=== PATIENT | female | born 1980 | race Two or more races ===

== ENCOUNTER 2016-11-10 11:33 | Inpatient (IN) | payer MEDICAID, OTHER ==
[~2016-11-10] VITALS: Ht 152.4 cm; Wt 59.4 kg
[~2016-11-10 11:33] MED LIST: BACTDSB PO; HYDR-309 PO
[2016-11-10 12:39] VITALS: BP 135/101
[2016-11-10] MEDS ORDERED: INFLUENZA VIRUS VACCINE QVS 2016-17 (3YR+)/PF 60 MCG/0.5 ML SYRINGE IM ONE ×2 (14:00→19:45)
[2016-11-10 15:17] LABS: GLUCOSE,POINT OF CARE 90 MG/DL (70-110)
[2016-11-10 15:33] LABS: BASOPHILS % (AUTO) 0.3 % (0.0-2.0); EOSINOPHILS % (AUTO) 0.8 % (1.0-6.0); HEMATOCRIT 32.8 % (36-46); HEMOGLOBIN 10.5 g/dL (12.0-16.0); LYMPHOCYTES # (AUTO) 1.3 K/uL (1.0-4.8); LYMPHOCYTES % (AUTO) 16.7 % (22.0-44.0); MEAN CORPUSCULAR HEMOGLOBIN 24.2 pg (26.0-34.0); MEAN CORPUSCULAR HGB CONC 32.1 G/dL (31.0-37.0); MEAN CORPUSCULAR VOLUME 75 fL (80-100); MONOCYTES # (AUTO) 0.3 K/uL (0.1-1.0); MONOCYTES % (AUTO) 3.8 % (2.0-9.0); NEUTROPHILS # (AUTO) 6.2 K/uL (1.8-7.7); NEUTROPHILS % (AUTO) 78.4 % (40.0-70.0); PLATELET COUNT (AUTO) 417 K/uL (150-450); RED BLOOD CELL COUNT(AUTO) 4.36 MIL/uL (4.00-5.20); RED CELL DISTRIBUTION WIDTH 18.4 % (11.5-14.5); WHITE BLOOD COUNT (AUTO) 7.9 K/uL (4.5-11.0)
[2016-11-10 15:57] LABS: ANION GAP 8 mmol/L (8-16); CALCIUM, TOTAL 7.7 mg/dL (8.8-10.5); CARBON DIOXIDE 25 mmol/L (22-29); CHLORIDE 106 mmol/L (98-107); CREATININE 0.55 mg/dL (0.60-1.30); GLOMERULAR FILTR. RATE CALC > 60 mL/min (>60); POTASSIUM 3.7 mmol/L (3.5-5.1); SODIUM SERUM 139 mmol/L (136-145); UREA NITROGEN, BLOOD 9 mg/dL (7-18)
[2016-11-10 16:07] LABS: ALANINE AMINOTRANSFERASE 14 U/L (12-78); ALBUMIN 2.8 g/dL (3.4-5.0); ASPARTATE AMINOTRANSFERASE 11 U/L (15-37); BILIRUBIN,TOTAL 0.1 mg/dL (0.1-1.0); TOTAL PROTEIN, SERUM 6.9 g/dL (6.4-8.2)
[2016-11-10] MEDS ORDERED: CEFTAROLINE 600 MG/D5W 250 ML IV ONE (16:30)
[2016-11-10 19:27] VITALS: BP 139/82
[2016-11-10] MEDS: LORazepam 2 MG TABLET PO PRN (22:34)
[2016-11-11] VITALS (12 sets, daily range): BP systolic 128–145; BP diastolic 79–101
[2016-11-11] MEDS ORDERED: IBUPROFEN 600 MG TABLET PO PRN (08:00)
[2016-11-11] MEDS ORDERED: LOPERAMIDE HCL 2 MG CAPSULE PO PRN (08:00)
[2016-11-11] MEDS ORDERED: CloNIDine HCL 0.1 MG TABLET PO PRN ×2 (08:00→12:45)
[2016-11-11] MEDS ORDERED: ONDANSETRON HCL 4 MG TABLET PO PRN (08:00)
[2016-11-11] MEDS ORDERED: MAGNESIUM HYDROXIDE SUSPENSION 30 ML UDCUP PO PRN (08:00)
[2016-11-11] MEDS ORDERED: BACITRACIN 28.4 GM OINTMENT TP PRN (08:00)
[2016-11-11] MEDS ORDERED: MAG HYDROX/AL HYDROX/SIMETH ES 30 ML SUSPENSION UDCUP PO PRN ×2 (08:00→12:45)
[2016-11-11] MEDS ORDERED: ACETAMINOPHEN 325 MG TABLET PO PRN (08:00)
[2016-11-11] MEDS ORDERED: PETROLATUM,WHITE 71 GM JELLY TP PRN (08:00)
[2016-11-11] MEDS ORDERED: BENZOCAINE/MENTHOL LOZENGE MM PRN (08:00)
[2016-11-11] MEDS ORDERED: ALBUTEROL SULFATE HFA 90 MCG/PUFF 8 GM INHALER IH PRN (08:00)
[2016-11-11] MEDS: MULTIVITAMINS WITH MINERALS, THERAPEUTIC TABLET PO SCH (10:17)
[2016-11-11] MEDS: CEPHALEXIN MONOHYDRATE 500 MG CAPSULE PO SCH ×3 (10:17→16:44)
[2016-11-11] MEDS: SULFAMETHOX/TRIMETH DS 800-160 MG/TABLET PO SCH ×2 (10:17→16:44)
[2016-11-11] MEDS: NICOTINE 21 MG/24 HOUR PATCH TD SCH (10:19)
[2016-11-11] MEDS: LORazepam 2 MG TABLET PO PRN ×2 (11:34→17:32)
[2016-11-11] MEDS ORDERED: PROMETHAZINE HCL 25 MG/ML VIAL IM PRN (12:45)
[2016-11-11] MEDS ORDERED: HydrOXYzine PAMOATE 50 MG CAPSULE PO PRN (12:45)
[2016-11-11] MEDS: CloNIDine HCL 0.1 MG TABLET PO SCH ×2 (16:44→21:21)
[2016-11-11] MEDS: ZOLPIDEM TARTRATE 10 MG TABLET PO PRN (22:22)
[2016-11-12 00:05] VITALS: BP 126/92
[2016-11-12] MEDS: LORazepam 2 MG TABLET PO PRN ×4 (00:08→21:08)
[2016-11-12 04:00] VITALS: BP 129/91
[2016-11-12 05:45] VITALS: BP 125/94
[2016-11-12] MEDS: CloNIDine HCL 0.1 MG TABLET PO SCH ×4 (05:47→21:08)
[2016-11-12] MEDS: SULFAMETHOX/TRIMETH DS 800-160 MG/TABLET PO SCH ×2 (09:28→16:22)
[2016-11-12] MEDS: MULTIVITAMINS WITH MINERALS, THERAPEUTIC TABLET PO SCH (09:28)
[2016-11-12] MEDS: NICOTINE 21 MG/24 HOUR PATCH TD SCH (09:29)
[2016-11-12] MEDS: CEPHALEXIN MONOHYDRATE 500 MG CAPSULE PO SCH ×3 (09:29→16:22)
[2016-11-12] MEDS: TraZODone HCL 100 MG TABLET PO SCH ×2 (12:54→16:22)
[2016-11-13 06:02] VITALS: BP 123/63
[2016-11-13 06:03] VITALS: BP 123/63
[2016-11-13] MEDS: CloNIDine HCL 0.1 MG TABLET PO SCH ×4 (06:07→20:04)
[2016-11-13] MEDS: NICOTINE 21 MG/24 HOUR PATCH TD SCH (08:18)
[2016-11-13] MEDS: MULTIVITAMINS WITH MINERALS, THERAPEUTIC TABLET PO SCH (08:18)
[2016-11-13] MEDS: CEPHALEXIN MONOHYDRATE 500 MG CAPSULE PO SCH ×3 (08:18→16:19)
[2016-11-13] MEDS: SULFAMETHOX/TRIMETH DS 800-160 MG/TABLET PO SCH ×2 (08:18→16:19)
[2016-11-13] MEDS: TraZODone HCL 100 MG TABLET PO SCH ×3 (08:18→16:19)
[2016-11-13] MEDS: LORazepam 2 MG TABLET PO PRN ×2 (15:06→20:54)
[2016-11-13 16:28] VITALS: BP 110/71
[2016-11-13 16:30] VITALS: BP 110/71
[2016-11-13] MEDS: HALOPERIDOL 5 MG TABLET PO PRN (16:44)
[2016-11-13 20:00] VITALS: BP 110/73
[2016-11-13 21:06] VITALS: BP 106/69
[2016-11-13] MEDS: IBUPROFEN 600 MG TABLET PO PRN (21:06)
[2016-11-14 06:08] VITALS: BP 114/61
[2016-11-14] MEDS: CloNIDine HCL 0.1 MG TABLET PO SCH ×4 (06:11→21:24)
[2016-11-14 08:30] VITALS: BP 101/61
[2016-11-14] MEDS: CEPHALEXIN MONOHYDRATE 500 MG CAPSULE PO SCH ×3 (08:49→17:35)
[2016-11-14] MEDS: TraZODone HCL 100 MG TABLET PO SCH ×3 (08:49→17:35)
[2016-11-14] MEDS: SULFAMETHOX/TRIMETH DS 800-160 MG/TABLET PO SCH ×2 (08:49→17:35)
[2016-11-14] MEDS: MULTIVITAMINS WITH MINERALS, THERAPEUTIC TABLET PO SCH (08:49)
[2016-11-14] MEDS: NICOTINE 21 MG/24 HOUR PATCH TD SCH (08:50)
[2016-11-14 09:51] VITALS: BP 101/61
[2016-11-14] MEDS: LORazepam 2 MG TABLET PO PRN ×3 (10:42→21:28)
[2016-11-14] MEDS: HALOPERIDOL 5 MG TABLET PO PRN ×2 (10:56→16:24)
[2016-11-14 12:22] VITALS: BP 115/79
[2016-11-14 16:00] VITALS: BP 105/65
[2016-11-14] MEDS: IBUPROFEN 600 MG TABLET PO PRN (16:25)
[2016-11-14 16:33] VITALS: BP 105/65
[2016-11-14] MEDS: ZOLPIDEM TARTRATE 10 MG TABLET PO PRN (23:00)
[2016-11-15] VITALS (7 sets, daily range): BP systolic 103–119; BP diastolic 66–73
[2016-11-15] MEDS: CloNIDine HCL 0.1 MG TABLET PO SCH ×4 (06:14→21:09)
[2016-11-15 08:24] LABS: BASOPHILS # (AUTO) 0.05 K/uL (0.00-0.20); BASOPHILS % (AUTO) 0.9 % (0.0-2.0); EOSINOPHILS # (AUTO) 0.17 K/uL (0.00-0.70); EOSINOPHILS % (AUTO) 2.83 % (1.0-6.0); HEMATOCRIT 30.6 % (36-46); HEMOGLOBIN 9.9 g/dL (12.0-16.0); LYMPHOCYTES # (AUTO) 2.7 K/uL (1.0-4.8); LYMPHOCYTES % (AUTO) 44.9 % (22.0-44.0); MEAN CORPUSCULAR HEMOGLOBIN 24.1 pg (26.0-34.0); MEAN CORPUSCULAR HGB CONC 32.3 G/dL (31.0-37.0); MEAN CORPUSCULAR VOLUME 75 fL (80-100); MONOCYTES # (AUTO) 0.4 K/uL (0.1-1.0); MONOCYTES % (AUTO) 6.6 % (2.0-9.0); NEUTROPHILS # (AUTO) 2.7 K/uL (1.8-7.7); NEUTROPHILS % (AUTO) 44.8 % (40.0-70.0); PLATELET COUNT (AUTO) 335 K/uL (150-450); RED CELL DISTRIBUTION WIDTH 18.4 % (11.5-14.5)
[2016-11-15] MEDS: SULFAMETHOX/TRIMETH DS 800-160 MG/TABLET PO SCH ×2 (08:52→16:37)
[2016-11-15] MEDS: NICOTINE 21 MG/24 HOUR PATCH TD SCH (08:52)
[2016-11-15] MEDS: CEPHALEXIN MONOHYDRATE 500 MG CAPSULE PO SCH ×3 (08:52→16:37)
[2016-11-15] MEDS: TraZODone HCL 100 MG TABLET PO SCH ×3 (08:52→16:37)
[2016-11-15] MEDS: MULTIVITAMINS WITH MINERALS, THERAPEUTIC TABLET PO SCH (08:52)
[2016-11-15 08:53] LABS: ALANINE AMINOTRANSFERASE 14 U/L (12-78); ALBUMIN 3.1 g/dL (3.4-5.0); ANION GAP 10 mmol/L (8-16); ASPARTATE AMINOTRANSFERASE 10 U/L (15-37); BILIRUBIN,TOTAL 0.2 mg/dL (0.1-1.0); CALCIUM, TOTAL 8.3 mg/dL (8.8-10.5); CARBON DIOXIDE 23 mmol/L (22-29); CHLORIDE 105 mmol/L (98-107); CHOL/HDL RATIO 2.9 (3.9-5.7); CREATININE 0.68 mg/dL (0.60-1.30); GLOMERULAR FILTR. RATE CALC > 60 mL/min (>60); POTASSIUM 4.5 mmol/L (3.5-5.1); SODIUM SERUM 138 mmol/L (136-145); THYROID STIMULATING HORMONE 1.61 uIU/mL (0.36-3.74); TOTAL PROTEIN, SERUM 7.1 g/dL (6.4-8.2); UREA NITROGEN, BLOOD 16 mg/dL (7-18)
[2016-11-15 10:59] LABS: RBC MORPHOLOGY COMMENT ABNORMAL RBC MORPH
[2016-11-15] MEDS: LORazepam 2 MG TABLET PO PRN ×3 (11:36→21:53)
[2016-11-15] MEDS: HALOPERIDOL 5 MG TABLET PO PRN (12:32)
[2016-11-15] MEDS: ZOLPIDEM TARTRATE 10 MG TABLET PO PRN (21:09)
[2016-11-16] MEDS: CloNIDine HCL 0.1 MG TABLET PO SCH ×4 (06:00→22:01)
[2016-11-16 06:24] VITALS: BP 103/58
[2016-11-16] MEDS: MULTIVITAMINS WITH MINERALS, THERAPEUTIC TABLET PO SCH (09:16)
[2016-11-16] MEDS: CEPHALEXIN MONOHYDRATE 500 MG CAPSULE PO SCH ×3 (09:16→16:21)
[2016-11-16] MEDS: TraZODone HCL 100 MG TABLET PO SCH ×3 (09:16→16:21)
[2016-11-16] MEDS: NICOTINE 21 MG/24 HOUR PATCH TD SCH (09:16)
[2016-11-16] MEDS: LORazepam 2 MG TABLET PO PRN ×2 (10:05→15:56)
[2016-11-16 10:08] VITALS: BP 130/75
[2016-11-16] MEDS: HALOPERIDOL 5 MG TABLET PO PRN (13:03)
[2016-11-16 16:36] VITALS: BP 130/78
[2016-11-16] MEDS: ZOLPIDEM TARTRATE 10 MG TABLET PO PRN (20:05)
[2016-11-16] MEDS ORDERED: CHLO100T24 PO (21:01)
[2016-11-16 22:00] VITALS: BP 126/63
[2016-11-16] MEDS ORDERED: TRAZ-147 PO (22:01)
[2016-11-16] MEDS ORDERED: CEPH500 PO (22:04)
[2016-11-17 05:51] VITALS: BP 98/66
[2016-11-17 05:52] VITALS: BP_SYST 99; BP_DIAS 59; BP_DIAS 69
[2016-11-17] MEDS: CloNIDine HCL 0.1 MG TABLET PO SCH (05:54)
== END 2016-11-17 07:15 | disposition home or self-care (01) | DRG 750 ==
LOC: BV PSY EVL 13:38 → B2S 17:44 → B3A 19:09 → B2S 19:26 → B3A 11-11 21:35
PROVIDERS: ADMIT Psychiatry & Neurology Psychiatry; ATTEND Psychiatry & Neurology Psychiatry
PROC: 3E0234Z Introduction of Serum, Toxoid and Vaccine into Muscle, Percutaneous Approach (ICD-10-PCS; principal; 2016-11-10)
DX: F25.9 Schizoaffective disorder, unspecified (principal); R45.851 Suicidal ideations; E83.51 Hypocalcemia; F11.10 Opioid abuse, uncomplicated; I10 Essential (primary) hypertension; B99.8 Other infectious disease; L03.114 Cellulitis of left upper limb; D50.9 Iron deficiency anemia, unspecified; Z90.49 Acquired absence of other specified parts of digestive tract; F17.200 Nicotine dependence, unspecified, uncomplicated; B18.2 Chronic viral hepatitis C; F12.90 Cannabis use, unspecified, uncomplicated; G47.00 Insomnia, unspecified; E11.9 Type 2 diabetes mellitus without complications; F19.10 Other psychoactive substance abuse, uncomplicated; F22 Delusional disorders; G43.909 Migraine, unspecified, not intractable, without status migrainosus; F32.9 Major depressive disorder, single episode, unspecified; F41.9 Anxiety disorder, unspecified; Z23 Encounter for immunization
CPT/HCPCS: 82306; 82962; 84443; 93971; 96365; 99285; 99406; G0480; J0712; Q0162

== ENCOUNTER 2016-11-19 16:07 | Inpatient (IN) | payer MEDICAID, OTHER ==
[~2016-11-19] VITALS: Ht 152.4 cm; Wt 59.4 kg
[~2016-11-19 16:07] MED LIST changes: -BACTDSB PO; +CEPH500 PO; -HYDR-309 PO; +TRAZ-147 PO
[2016-11-19 16:17] LABS: GLUCOSE,POINT OF CARE 89 MG/DL (70-110)
[2016-11-19] MEDS ORDERED: ZOLPIDEM TARTRATE 10 MG TABLET PO PRN (16:45)
[2016-11-19 16:57] LABS: BASOPHILS % (AUTO) 1.2 % (0.0-2.0); EOSINOPHILS % (AUTO) 1.3 % (1.0-6.0); HEMOGLOBIN 10.9 g/dL (12.0-16.0); LYMPHOCYTES # (AUTO) 2.3 K/uL (1.0-4.8); LYMPHOCYTES % (AUTO) 36.3 % (22.0-44.0); MEAN CORPUSCULAR HEMOGLOBIN 24.1 pg (26.0-34.0); MEAN CORPUSCULAR HGB CONC 31.9 G/dL (31.0-37.0); MEAN CORPUSCULAR VOLUME 75 fL (80-100); MONOCYTES # (AUTO) 0.3 K/uL (0.1-1.0); MONOCYTES % (AUTO) 4.7 % (2.0-9.0); NEUTROPHILS # (AUTO) 3.5 K/uL (1.8-7.7); NEUTROPHILS % (AUTO) 56.5 % (40.0-70.0); PLATELET COUNT (AUTO) 404 K/uL (150-450); RED BLOOD CELL COUNT(AUTO) 4.51 MIL/uL (4.00-5.20); RED CELL DISTRIBUTION WIDTH 18.3 % (11.5-14.5); WHITE BLOOD COUNT (AUTO) 6.3 K/uL (4.5-11.0)
[2016-11-19 17:07] LABS: ANION GAP 12 mmol/L (8-16); CALCIUM, TOTAL 8.6 mg/dL (8.8-10.5); CARBON DIOXIDE 23 mmol/L (22-29); CHLORIDE 106 mmol/L (98-107); CREATININE 0.57 mg/dL (0.60-1.30); GLOMERULAR FILTR. RATE CALC > 60 mL/min (>60); POTASSIUM 4.1 mmol/L (3.5-5.1); SODIUM SERUM 141 mmol/L (136-145); UREA NITROGEN, BLOOD 14 mg/dL (7-18)
[2016-11-19 17:13] LABS: ALANINE AMINOTRANSFERASE 19 U/L (12-78); ALBUMIN 3.6 g/dL (3.4-5.0); ASPARTATE AMINOTRANSFERASE 14 U/L (15-37); BILIRUBIN,TOTAL 0.1 mg/dL (0.1-1.0); TOTAL PROTEIN, SERUM 7.7 g/dL (6.4-8.2)
[2016-11-19 17:45] VITALS: BP 145/85
[2016-11-19] MEDS: LORazepam 2 MG TABLET PO PRN ×2 (18:19→22:25)
[2016-11-19] MEDS: HALOPERIDOL 5 MG TABLET PO PRN (18:19)
[2016-11-19] MEDS ORDERED: MAGNESIUM HYDROXIDE SUSPENSION 30 ML UDCUP PO PRN (19:15)
[2016-11-19] MEDS ORDERED: ACETAMINOPHEN 325 MG TABLET PO PRN (19:15)
[2016-11-19] MEDS ORDERED: BENZOCAINE/MENTHOL LOZENGES [6 LOZENGES/PACKET] PO PRN (19:15)
[2016-11-19] MEDS ORDERED: ALBUTEROL SULFATE HFA 90 MCG/PUFF 8 GM INHALER IH PRN (19:15)
[2016-11-19] MEDS ORDERED: LOPERAMIDE HCL 2 MG CAPSULE PO PRN (19:15)
[2016-11-19] MEDS ORDERED: PETROLATUM,WHITE 71 GM JELLY TP PRN (19:15)
[2016-11-19] MEDS ORDERED: MAG HYDROX/AL HYDROX/SIMETH 30 ML SUSP UDCUP PO PRN (19:15)
[2016-11-19] MEDS ORDERED: CloNIDine HCL 0.1 MG TABLET PO PRN (19:15)
[2016-11-19] MEDS ORDERED: ONDANSETRON HCL 4 MG TABLET PO PRN (19:15)
[2016-11-20] MEDS: LORazepam 2 MG TABLET PO PRN ×3 (03:50→18:20)
[2016-11-20 06:29] VITALS: BP 127/77
[2016-11-20 09:39] VITALS: BP 129/89
[2016-11-20] MEDS: HALOPERIDOL 5 MG TABLET PO PRN ×2 (10:31→16:50)
[2016-11-20] MEDS: MULTIVITAMINS WITH MINERALS, THERAPEUTIC TABLET PO SCH (10:31)
[2016-11-20] MEDS: NICOTINE 21 MG/24 HOUR PATCH TD SCH (13:14)
[2016-11-20 16:24] VITALS: BP 119/76
[2016-11-21] MEDS: LORazepam 2 MG TABLET PO PRN ×3 (01:08→20:35)
[2016-11-21 01:09] VITALS: BP 124/96
[2016-11-21 04:45] VITALS: BP 124/85
[2016-11-21] MEDS: IBUPROFEN 600 MG TABLET PO PRN ×2 (04:49→12:36)
[2016-11-21] MEDS: TraZODone HCL 100 MG TABLET PO SCH ×3 (09:08→16:28)
[2016-11-21] MEDS: MULTIVITAMINS WITH MINERALS, THERAPEUTIC TABLET PO SCH (09:08)
[2016-11-21] MEDS: NICOTINE 21 MG/24 HOUR PATCH TD SCH (09:11)
[2016-11-21 09:44] VITALS: BP 113/70
[2016-11-21] MEDS: HALOPERIDOL 5 MG TABLET PO PRN (16:29)
[2016-11-21 16:53] VITALS: BP 126/101
[2016-11-22] MEDS: LORazepam 2 MG TABLET PO PRN ×2 (07:13→13:30)
[2016-11-22 08:52] VITALS: BP 97/61
[2016-11-22] MEDS: MULTIVITAMINS WITH MINERALS, THERAPEUTIC TABLET PO SCH (09:21)
[2016-11-22] MEDS: TraZODone HCL 100 MG TABLET PO SCH ×2 (09:21→13:30)
[2016-11-22] MEDS: HALOPERIDOL 5 MG TABLET PO PRN ×2 (09:21→13:30)
[2016-11-22] MEDS: NICOTINE 21 MG/24 HOUR PATCH TD SCH (09:22)
[2016-11-22] MEDS ORDERED: MULT-1203 PO (13:41)
== END 2016-11-22 14:00 | disposition home or self-care (01) | DRG 750 ==
LOC: EMS 16:08 → 3EI 16:45
PROVIDERS: ADMIT Psychiatry & Neurology Psychiatry; ATTEND Psychiatry & Neurology Psychiatry
DX: F25.9 Schizoaffective disorder, unspecified (principal); R45.851 Suicidal ideations; E11.9 Type 2 diabetes mellitus without complications; I10 Essential (primary) hypertension; D50.9 Iron deficiency anemia, unspecified; F11.10 Opioid abuse, uncomplicated; G43.909 Migraine, unspecified, not intractable, without status migrainosus; F32.9 Major depressive disorder, single episode, unspecified; F41.9 Anxiety disorder, unspecified; B18.2 Chronic viral hepatitis C; G47.00 Insomnia, unspecified; F17.210 Nicotine dependence, cigarettes, uncomplicated; F12.90 Cannabis use, unspecified, uncomplicated; Z71.6 Tobacco abuse counseling; Z71.51 Drug abuse counseling and surveillance of drug abuser; Z79.899 Other long term (current) drug therapy; Z90.49 Acquired absence of other specified parts of digestive tract; Z98.890 Other specified postprocedural states; Z59.0 Homelessness
CPT/HCPCS: 82962; 87081; 99285; G0480

== ENCOUNTER 2018-08-08 19:39 | Emergency (ER) | payer MEDICAID ==
[~2018-08-08] VITALS: Ht 152.4 cm; Wt 102.3 kg
[~2018-08-08 19:39] MED LIST changes: -CEPH500 PO; +MULT-1203 PO; -TRAZ-147 PO; +TRAZ-220 PO
[2018-08-08 19:58] LABS: GLUCOSE,POINT OF CARE 301 MG/DL (70-110)
[2018-08-08] MEDS: KETOROLAC TROMETHAMINE 30 MG/ML VIAL IM ONE (20:20)
[2018-08-08] MEDS: HYDROCODONE/ACETAMINOPHEN 5-325 MG TABLET PO ONE (20:20)
[2018-08-08 21:21] VITALS: BP 147/93
== END 2018-08-08 22:10 | disposition home or self-care (01) ==
LOC: EMS 19:40
DX: S83.91XA Sprain of unspecified site of right knee, initial encounter (principal); S93.401A Sprain of unspecified ligament of right ankle, initial encounter; I10 Essential (primary) hypertension; E11.9 Type 2 diabetes mellitus without complications; F32.9 Major depressive disorder, single episode, unspecified; F20.9 Schizophrenia, unspecified; F41.9 Anxiety disorder, unspecified; F17.210 Nicotine dependence, cigarettes, uncomplicated; F11.90 Opioid use, unspecified, uncomplicated; X50.1XXA Overexertion from prolonged static or awkward postures, initial encounter; Y93.01 Activity, walking, marching and hiking; Y92.89 Other specified places as the place of occurrence of the external cause; Y99.8 Other external cause status
CPT/HCPCS: 29515; 73562; 73610; 82962; 96372; 99283; J1885

== ENCOUNTER 2018-11-04 08:52 | Emergency (ER) | payer MEDICAID ==
[~2018-11-04] VITALS: Ht 152.4 cm; Wt 104.5 kg
[2018-11-04 09:08] LABS: GLUCOSE,POINT OF CARE 137 MG/DL (70-110)
[2018-11-04] MEDS ORDERED: KETOROLAC TROMETHAMINE 30 MG/ML VIAL IM ONE (10:30)
[2018-11-04 12:25] VITALS: BP 141/86
== END 2018-11-04 12:46 | disposition home or self-care (01) ==
LOC: EMS 08:53
DX: S93.491A Sprain of other ligament of right ankle, initial encounter (principal); E11.9 Type 2 diabetes mellitus without complications; I10 Essential (primary) hypertension; G43.909 Migraine, unspecified, not intractable, without status migrainosus; F20.9 Schizophrenia, unspecified; F11.20 Opioid dependence, uncomplicated; F17.210 Nicotine dependence, cigarettes, uncomplicated; F19.10 Other psychoactive substance abuse, uncomplicated; F41.9 Anxiety disorder, unspecified; F32.9 Major depressive disorder, single episode, unspecified; Z90.49 Acquired absence of other specified parts of digestive tract; X50.9XXA Other and unspecified overexertion or strenuous movements or postures, initial encounter; Y93.89 Activity, other specified; Y92.89 Other specified places as the place of occurrence of the external cause; Y99.8 Other external cause status
CPT/HCPCS: 29515; 73590; 73610; 73630; 82962; 96372; 99283; 99406; J1885

== ENCOUNTER 2023-03-19 16:32 | Emergency (ER) | payer MEDICAID ==
[~2023-03-19] VITALS: Ht 149.9 cm; Wt 61.4 kg
[2023-03-19 17:02] VITALS: BP 186/105; PULSE 121; RESP 16; TEMP 98.3
[2023-03-19] MEDS ORDERED: CEPH-558 PO ×2 (17:15→17:31)
[2023-03-19] MEDS ORDERED: DOXY-354 PO ×2 (17:15→17:31)
[2023-03-19] MEDS ORDERED: BACI28.410 TP ×2 (17:15→17:31)
== END 2023-03-19 18:01 | disposition home or self-care (01) ==
LOC: EMS 16:33
DX: L73.9 Follicular disorder, unspecified (principal); F41.9 Anxiety disorder, unspecified; F32.A Depression, unspecified; E11.9 Type 2 diabetes mellitus without complications; I10 Essential (primary) hypertension; G43.909 Migraine, unspecified, not intractable, without status migrainosus; F20.9 Schizophrenia, unspecified; F17.210 Nicotine dependence, cigarettes, uncomplicated; F11.90 Opioid use, unspecified, uncomplicated; Z90.49 Acquired absence of other specified parts of digestive tract; Z98.890 Other specified postprocedural states
CPT/HCPCS: 99283; Z7502

== ENCOUNTER 2023-05-20 12:35 | Emergency (ER) | payer MEDICAID, OTHER ==
[~2023-05-20] VITALS: Ht 149.9 cm; Wt 72.7 kg
[~2023-05-20 12:35] MED LIST changes: +BACI28.410 TP; +CEPH-558 PO; +DOXY-354 PO; -MULT-1203 PO; -TRAZ-220 PO
[2023-05-20 12:54] VITALS: TEMP 98.5
[2023-05-20] MEDS ORDERED: ACETAMINOPHEN 500 MG TABLET PO ONE (14:45)
[2023-05-20] MEDS ORDERED: ONDANSETRON HCL 4 MG/2 ML VIAL IVP ONE (14:45)
[2023-05-20] MEDS ORDERED: SODIUM CHLORIDE 0.9% 1,000 ML IV ONE (14:45)
[2023-05-20] MEDS ORDERED: CloNIDine HCL 0.1 MG TABLET PO ONE (14:45)
[2023-05-20 16:01] LABS: BASOPHILS % (AUTO) 0.8 % (0.0-2.0); EOSINOPHILS % (AUTO) 0.2 % (1.0-6.0); HEMOGLOBIN 11.6 g/dL (12.0-16.0); LYMPHOCYTES # (AUTO) 1.1 K/uL (1.0-4.8); LYMPHOCYTES % (AUTO) 16.1 % (22.0-44.0); MEAN CORPUSCULAR HGB CONC 32.3 G/dL (31.0-37.0); MEAN CORPUSCULAR VOLUME 77 fL (80-100); MONOCYTES # (AUTO) 0.2 K/uL (0.1-1.0); MONOCYTES % (AUTO) 3.1 % (2.0-9.0); NEUTROPHILS # (AUTO) 5.3 K/uL (1.8-7.7); NEUTROPHILS % (AUTO) 79.8 % (40.0-70.0); PLATELET COUNT (AUTO) 272 K/uL (150-450); RED BLOOD CELL COUNT(AUTO) 4.66 MIL/uL (4.00-5.20); RED CELL DISTRIBUTION WIDTH 17.5 % (11.5-14.5); WHITE BLOOD COUNT (AUTO) 6.7 K/uL (4.5-11.0)
[2023-05-20 16:22] LABS: TROPONIN I-HIGH SENSITIVITY 7 ng/L (<51)
[2023-05-20 16:28] LABS: ALANINE AMINOTRANSFERASE 14 U/L (12-78); ALBUMIN 3.6 g/dL (3.4-5.0); ALKALINE PHOSPHATASE 84 U/L (46-116); ANION GAP 13 mmol/L (8-16); ASPARTATE AMINOTRANSFERASE 12 U/L (15-37); BILIRUBIN,TOTAL 0.3 mg/dL (0.1-1.0); CALCIUM, TOTAL 8.9 mg/dL (8.8-10.5); CARBON DIOXIDE 22 mmol/L (22-29); CHLORIDE 104 mmol/L (98-107); CREATININE 0.55 mg/dL (0.60-1.30); GLOMERULAR FILTR. RATE CALC > 60 mL/min (>60); GLUCOSE,RANDOM 132 mg/dL (70-110); SODIUM SERUM 140 mmol/L (136-145); TOTAL PROTEIN, SERUM 7.7 g/dL (6.4-8.2); UREA NITROGEN, BLOOD 9 mg/dL (7-18)
[2023-05-20 16:30] LABS: ALCOHOL, BLOOD (SERUM) < 3 mg/dL (0-10)
[2023-05-20 16:31] LABS: CREATINE KINASE, TOTAL ONLY 47 U/L (26-192)
[2023-05-20] MEDS ORDERED: POTASSIUM CHLORIDE 20 MEQ ER TABLET PO ONE (16:45)
[2023-05-20 17:44] LABS: RBC MORPHOLOGY COMMENT ABNORMAL RBC MORPH
[2023-05-20] MEDS ORDERED: LORazepam 1 MG TABLET PO ONE (19:00)
[2023-05-20 20:00] VITALS: BP 152/78; PULSE 71; RESP 16
== END 2023-05-20 20:18 | disposition home or self-care (01) ==
LOC: EMS 12:44
DX: S02.2XXA Fracture of nasal bones, initial encounter for closed fracture (principal); F11.93 Opioid use, unspecified with withdrawal; F41.9 Anxiety disorder, unspecified; F32.A Depression, unspecified; E11.9 Type 2 diabetes mellitus without complications; I10 Essential (primary) hypertension; G43.909 Migraine, unspecified, not intractable, without status migrainosus; F20.9 Schizophrenia, unspecified; F17.210 Nicotine dependence, cigarettes, uncomplicated; F12.90 Cannabis use, unspecified, uncomplicated; F15.90 Other stimulant use, unspecified, uncomplicated; Z90.49 Acquired absence of other specified parts of digestive tract; Z98.890 Other specified postprocedural states; X58.XXXA Exposure to other specified factors, initial encounter; Y93.89 Activity, other specified; Y92.89 Other specified places as the place of occurrence of the external cause; Y99.8 Other external cause status
CPT/HCPCS: 99285; 70450; 96374; 96361; 80053; 82550; 84484; 84703; 85025; 36415; 70486; 72125; 93005; G0480; J2405; J7030

== ENCOUNTER 2023-05-21 00:11 | Inpatient (IN) | payer OTHER ==
[~2023-05-21] VITALS: Ht 149.9 cm; Wt 72.7 kg
[2023-05-21 04:52] LABS: BASOPHILS % (AUTO) 0.7 % (0.0-2.0); EOSINOPHILS % (AUTO) 2.4 % (1.0-6.0); HEMOGLOBIN 11.4 g/dL (12.0-16.0); LYMPHOCYTES # (AUTO) 2.4 K/uL (1.0-4.8); LYMPHOCYTES % (AUTO) 32.6 % (22.0-44.0); MEAN CORPUSCULAR HEMOGLOBIN 25.1 pg (26.0-34.0); MEAN CORPUSCULAR HGB CONC 32.7 G/dL (31.0-37.0); MEAN CORPUSCULAR VOLUME 77 fL (80-100); MONOCYTES # (AUTO) 0.5 K/uL (0.1-1.0); MONOCYTES % (AUTO) 6.5 % (2.0-9.0); NEUTROPHILS # (AUTO) 4.3 K/uL (1.8-7.7); NEUTROPHILS % (AUTO) 57.8 % (40.0-70.0); PLATELET COUNT (AUTO) 262 K/uL (150-450); RED BLOOD CELL COUNT(AUTO) 4.56 MIL/uL (4.00-5.20); WHITE BLOOD COUNT (AUTO) 7.5 K/uL (4.5-11.0)
[2023-05-21 05:00] LABS: ANION GAP 11 mmol/L (8-16); CALCIUM, TOTAL 8.8 mg/dL (8.8-10.5); CARBON DIOXIDE 21 mmol/L (22-29); CHLORIDE 106 mmol/L (98-107); CREATININE 0.63 mg/dL (0.60-1.30); GLOMERULAR FILTR. RATE CALC > 60 mL/min (>60); GLUCOSE,RANDOM 120 mg/dL (70-110); POTASSIUM 3.3 mmol/L (3.5-5.1); SODIUM SERUM 138 mmol/L (136-145); UREA NITROGEN, BLOOD 10 mg/dL (7-18)
[2023-05-21 05:08] LABS: ALANINE AMINOTRANSFERASE 15 U/L (12-78); ALBUMIN 3.3 g/dL (3.4-5.0); ALKALINE PHOSPHATASE 74 U/L (46-116); ASPARTATE AMINOTRANSFERASE 9 U/L (15-37); BILIRUBIN,TOTAL 0.3 mg/dL (0.1-1.0); CREATINE KINASE, TOTAL ONLY 46 U/L (26-192); TOTAL PROTEIN, SERUM 7.1 g/dL (6.4-8.2)
[2023-05-21 05:10] LABS: ALCOHOL, BLOOD (SERUM) < 3 mg/dL (0-10); TROPONIN I-HIGH SENSITIVITY 10 ng/L (<51)
[2023-05-21] MEDS ORDERED: POTASSIUM CHLORIDE 10% 40 MEQ/30 ML LIQUID UDCUP PO ONE (07:00)
[2023-05-21] MEDS ORDERED: LORazepam 2 MG TABLET PO ONE ×2 (07:00→10:15)
[2023-05-21 07:16] LABS: APPEARANCE,URINE CLEAR (CLEAR); BILIRUBIN,URINE NEGATIVE (NEGATIVE); COLOR,URINE LIGHT YELLOW (YELLOW); GLUCOSE, URINE (UA) NEGATIVE (NEGATIVE); KETONES,URINE NEGATIVE (NEGATIVE); LEUKOCYTE ESTERASE ,URINE NEGATIVE (NEGATIVE); NITRATE,URINE NEGATIVE (NEGATIVE); OCCULT BLOOD,URINE NEGATIVE (NEGATIVE); PROTEIN,URINE NEGATIVE (NEGATIVE); SPECIFIC GRAVITIY, URINE 1.013 (1.003-1.030); UROBILINOGEN,URINE <=1.0 mg/dL (<=1.0)
[2023-05-21 07:27] LABS: ALCOHOL, URINE DRUG SCREEN NEGATIVE (NEGATIVE); AMPHET/METH SCREEN,URINE POSITIVE (NEGATIVE); BARBITURATE SCREEN, URINE NEGATIVE (NEGATIVE); BENZODIAZEPINES SCREEN,URINE NEGATIVE (NEGATIVE); CANNABINOID SCREEN,URINE POSITIVE (NEGATIVE); COCAINE SCREEN,URINE NEGATIVE (NEGATIVE); METHADONE SCREEN, URINE NEGATIVE (NEGATIVE); OPIATE SCREEN,URINE NEGATIVE (NEGATIVE); PHENCYCLIDINE SCREEN,URINE NEGATIVE (NEGATIVE)
[2023-05-21 09:30] VITALS: BP 140/63; PULSE 78; RESP 19; TEMP 98.4
[2023-05-21 18:22] LABS: GLUCOMETER DEV NAME(LOC) 4E.2; GLUCOSE,POINT OF CARE 127 MG/DL (70-110)
[2023-05-21 19:50] VITALS: BP 158/101; PULSE 89; RESP 20; TEMP 99.1
[2023-05-21] MEDS ORDERED: IPRATROPIUM BROMIDE 0.5 MG/2.5 ML NEB SOLUTION NEB PRN (23:15)
[2023-05-21] MEDS ORDERED: AmLODIPine BESYLATE 10 MG TABLET PO ONE (23:15)
[2023-05-21] MEDS ORDERED: HYDROCODONE/ACETAMINOPHEN 5-325 MG TABLET PO PRN (23:15)
[2023-05-21] MEDS ORDERED: MORPHINE SULFATE 2 MG/ML SYRINGE IVP PRN (23:15)
[2023-05-21] MEDS ORDERED: BISACODYL 10 MG RECTAL RECTAL SUPPOSITORY PR PRN (23:15)
[2023-05-21] MEDS ORDERED: ZOLPIDEM TARTRATE 5 MG TABLET PO PRN (23:15)
[2023-05-21] MEDS ORDERED: MAGNESIUM HYDROXIDE SUSPENSION 30 ML UDCUP PO PRN (23:15)
[2023-05-21] MEDS ORDERED: LABETALOL HCL 5 MG/ML 20 ML VIAL IVP PRN (23:15)
[2023-05-21] MEDS ORDERED: ALBUTEROL SULFATE 2.5 MG/0.5 ML NEB SOLUTION NEB PRN (23:15)
[2023-05-21] MEDS ORDERED: ACETAMINOPHEN 325 MG TABLET PO PRN (23:15)
[2023-05-21] MEDS ORDERED: ONDANSETRON HCL 4 MG/2 ML VIAL IVP PRN (23:15)
[2023-05-21] MEDS: HEPARIN SODIUM,PORCINE 5,000 UNITS/ML VIAL SQ SCH (23:46)
[2023-05-22] VITALS (8 sets, daily range): BP systolic 106–161; BP diastolic 64–96; PULSE 84–100; RESP 18–20; TEMP 97.4–99.1; O2SAT 98
[2023-05-22 00:01] LABS: GLUCOMETER DEV NAME(LOC) 4E.2; GLUCOSE,POINT OF CARE 101 MG/DL (70-110)
[2023-05-22] MEDS: AmLODIPine BESYLATE 10 MG TABLET PO SCH (08:59)
[2023-05-22] MEDS: HEPARIN SODIUM,PORCINE 5,000 UNITS/ML VIAL SQ SCH ×3 (08:59→23:35)
[2023-05-22] MEDS: PANTOPRAZOLE SODIUM 40 MG DR TABLET PO SCH (08:59)
[2023-05-22 09:14] LABS: EOSINOPHILS % (AUTO) 2.3 % (1.0-6.0); HEMOGLOBIN 12.4 g/dL (12.0-16.0); LYMPHOCYTES # (AUTO) 1.7 K/uL (1.0-4.8); LYMPHOCYTES % (AUTO) 24.7 % (22.0-44.0); MEAN CORPUSCULAR HEMOGLOBIN 25.1 pg (26.0-34.0); MEAN CORPUSCULAR HGB CONC 32.7 G/dL (31.0-37.0); MEAN CORPUSCULAR VOLUME 77 fL (80-100); MONOCYTES # (AUTO) 0.4 K/uL (0.1-1.0); MONOCYTES % (AUTO) 5.2 % (2.0-9.0); NEUTROPHILS # (AUTO) 4.7 K/uL (1.8-7.7); NEUTROPHILS % (AUTO) 66.8 % (40.0-70.0); PLATELET COUNT (AUTO) 336 K/uL (150-450); RED BLOOD CELL COUNT(AUTO) 4.95 MIL/uL (4.00-5.20); RED CELL DISTRIBUTION WIDTH 17.2 % (11.5-14.5); WHITE BLOOD COUNT (AUTO) 7.1 K/uL (4.5-11.0)
[2023-05-22 09:17] LABS: ALANINE AMINOTRANSFERASE 17 U/L (12-78); ALBUMIN 3.6 g/dL (3.4-5.0); ALKALINE PHOSPHATASE 82 U/L (46-116); ANION GAP 8 mmol/L (8-16); ASPARTATE AMINOTRANSFERASE 11 U/L (15-37); BILIRUBIN,TOTAL 0.3 mg/dL (0.1-1.0); CALCIUM, TOTAL 9.2 mg/dL (8.8-10.5); CARBON DIOXIDE 23 mmol/L (22-29); CHLORIDE 103 mmol/L (98-107); CREATININE 0.65 mg/dL (0.60-1.30); GLOMERULAR FILTR. RATE CALC > 60 mL/min (>60); GLUCOSE,RANDOM 131 mg/dL (70-110); POTASSIUM 3.5 mmol/L (3.5-5.1); SODIUM SERUM 134 mmol/L (136-145); TOTAL PROTEIN, SERUM 7.8 g/dL (6.4-8.2); UREA NITROGEN, BLOOD 12 mg/dL (7-18)
[2023-05-22] MEDS ORDERED: HydrOXYzine PAMOATE 50 MG CAPSULE PO PRN ×2 (10:45)
[2023-05-22] MEDS ORDERED: PROMETHAZINE HCL 25 MG TABLET PO PRN (10:45)
[2023-05-22] MEDS ORDERED: MAG HYDROX/AL HYDROX/SIMETH ES 30 ML SUSPENSION UDCUP PO PRN ×2 (10:45)
[2023-05-22] MEDS ORDERED: TUBERCULIN, PURIFIED PROTEIN DERIVATIVE 5 TU/0.1 ML SYRINGE ID ONE (10:45)
[2023-05-22] MEDS ORDERED: CloNIDine HCL 0.1 MG TABLET PO PRN (10:45)
[2023-05-22] MEDS ORDERED: MAGNESIUM HYDROXIDE SUSPENSION 30 ML UDCUP PO PRN (10:45)
[2023-05-22] MEDS ORDERED: ACETAMINOPHEN 325 MG TABLET PO PRN (10:45)
[2023-05-22] MEDS ORDERED: IBUPROFEN 600 MG TABLET PO PRN (10:45)
[2023-05-22] MEDS ORDERED: GuaiFENesin/D-METHORPHAN [SUGAR-FREE] 200-20MG/10 ML SYRUP UDCUP PO PRN (10:45)
[2023-05-22] MEDS ORDERED: LOPERAMIDE HCL 2 MG CAPSULE PO PRN (10:45)
[2023-05-22] MEDS ORDERED: QUEtiapine FUMARATE 100 MG TABLET PO PRN (10:45)
[2023-05-22 11:39] LABS: RBC MORPHOLOGY COMMENT ABNORMAL RBC MORPH
[2023-05-22] MEDS: QUEtiapine FUMARATE 25 MG TABLET PO SCH ×2 (14:34→17:07)
[2023-05-22] MEDS: CloNIDine HCL 0.1 MG TABLET PO SCH ×3 (14:35→22:08)
[2023-05-22] MEDS: PREGABALIN 25 MG CAPSULE PO SCH ×2 (17:07→20:15)
[2023-05-22 18:51] LABS: GLUCOMETER DEV NAME(LOC) 6S.1B; GLUCOSE,POINT OF CARE 130 MG/DL (70-110)
[2023-05-22] MEDS: THIAMINE 100 MG TABLET PO SCH (20:15)
[2023-05-22] MEDS ORDERED: QUEtiapine FUMARATE 100 MG TABLET PO SCH (21:00)
[2023-05-22] MEDS ORDERED: MELATONIN 5 MG TABLET PO SCH (21:00)
[2023-05-23 05:44] VITALS: BP 106/66; PULSE 85; RESP 18; TEMP 98.2
[2023-05-23] MEDS: CloNIDine HCL 0.1 MG TABLET PO SCH ×2 (05:52→12:31)
[2023-05-23] MEDS: HEPARIN SODIUM,PORCINE 5,000 UNITS/ML VIAL SQ SCH (08:00)
[2023-05-23 08:22] VITALS: BP 108/71; PULSE 86; RESP 18; TEMP 96
[2023-05-23] MEDS: QUEtiapine FUMARATE 25 MG TABLET PO SCH ×2 (08:49→12:31)
[2023-05-23] MEDS: AmLODIPine BESYLATE 10 MG TABLET PO SCH (08:50)
[2023-05-23] MEDS: THIAMINE 100 MG TABLET PO SCH (08:50)
[2023-05-23] MEDS: PANTOPRAZOLE SODIUM 40 MG DR TABLET PO SCH (08:51)
[2023-05-23] MEDS: PREGABALIN 25 MG CAPSULE PO SCH (08:51)
[2023-05-23] MEDS ORDERED: DULoxetine HCL 20 MG CAPSULE PO SCH (09:00)
[2023-05-23] MEDS ORDERED: OMEGA-3/DHA/EPA/FISH OIL 1,000 MG CAPSULE PO SCH (09:00)
[2023-05-23] MEDS ORDERED: FOLIC ACID 1 MG TABLET PO SCH (09:00)
[2023-05-23] MEDS ORDERED: MULTIVITAMINS WITH MINERALS, THERAPEUTIC TABLET PO SCH (09:00)
[2023-05-23 10:17] LABS: COVID AG,FIA SOURCE NASAL SWAB
[2023-05-23 10:38] LABS: SARS-COV2 (COVID) ANTIGEN,FIA Negative (Negative)
[2023-05-23 12:10] LABS: BASOPHILS % (AUTO) 0.8 % (0.0-2.0); EOSINOPHILS % (AUTO) 2.4 % (1.0-6.0); HEMATOCRIT 35.7 % (36-46); HEMOGLOBIN 11.8 g/dL (12.0-16.0); LYMPHOCYTES # (AUTO) 1.6 K/uL (1.0-4.8); LYMPHOCYTES % (AUTO) 25.3 % (22.0-44.0); MEAN CORPUSCULAR HEMOGLOBIN 25.2 pg (26.0-34.0); MEAN CORPUSCULAR HGB CONC 32.9 G/dL (31.0-37.0); MEAN CORPUSCULAR VOLUME 77 fL (80-100); MONOCYTES # (AUTO) 0.4 K/uL (0.1-1.0); MONOCYTES % (AUTO) 6.3 % (2.0-9.0); NEUTROPHILS % (AUTO) 65.2 % (40.0-70.0); PLATELET COUNT (AUTO) 321 K/uL (150-450); RED BLOOD CELL COUNT(AUTO) 4.67 MIL/uL (4.00-5.20); RED CELL DISTRIBUTION WIDTH 17.2 % (11.5-14.5); WHITE BLOOD COUNT (AUTO) 6.2 K/uL (4.5-11.0)
[2023-05-23 12:29] LABS: ALANINE AMINOTRANSFERASE 16 U/L (12-78); ALBUMIN 3.4 g/dL (3.4-5.0); ALKALINE PHOSPHATASE 80 U/L (46-116); ANION GAP 11 mmol/L (8-16); ASPARTATE AMINOTRANSFERASE 9 U/L (15-37); BILIRUBIN,TOTAL 0.3 mg/dL (0.1-1.0); CARBON DIOXIDE 22 mmol/L (22-29); CHLORIDE 104 mmol/L (98-107); CREATININE 0.71 mg/dL (0.60-1.30); GLOMERULAR FILTR. RATE CALC > 60 mL/min (>60); GLUCOSE,RANDOM 161 mg/dL (70-110); POTASSIUM 3.6 mmol/L (3.5-5.1); SODIUM SERUM 137 mmol/L (136-145); TOTAL PROTEIN, SERUM 7.3 g/dL (6.4-8.2); UREA NITROGEN, BLOOD 20 mg/dL (7-18)
[2023-05-23 12:56] LABS: RBC MORPHOLOGY COMMENT ABNORMAL RBC MORPH
== END 2023-05-23 15:00 | DRG 773 ==
LOC: EMS 00:14 → 6N 08:57
PROVIDERS: ADMIT Hospitalist; ATTEND Hospitalist
DX: F11.13 Opioid abuse with withdrawal (principal); G93.40 Encephalopathy, unspecified; F25.9 Schizoaffective disorder, unspecified; I10 Essential (primary) hypertension; F32.9 Major depressive disorder, single episode, unspecified; E11.9 Type 2 diabetes mellitus without complications; G43.909 Migraine, unspecified, not intractable, without status migrainosus; F17.210 Nicotine dependence, cigarettes, uncomplicated; F41.9 Anxiety disorder, unspecified; Z20.822 Contact with and (suspected) exposure to COVID-19; E87.6 Hypokalemia; F15.10 Other stimulant abuse, uncomplicated; J44.9 Chronic obstructive pulmonary disease, unspecified; Z90.49 Acquired absence of other specified parts of digestive tract; Z59.00 Homelessness unspecified; Z91.51 Personal history of suicidal behavior
CPT/HCPCS: 71045; 80053; 80307; 81003; 82550; 82962; 83036; 84484; 84703; 85025; 86592; 93005; 99285; G0480; J1644; Q9967; 36415-L1; 36415-TC

== ENCOUNTER 2023-05-23 09:37 | Inpatient (IN) | payer MEDICAID ==
[2023-05-23] VITALS (7 sets, daily range): BP systolic 100–106; BP diastolic 61–76; PULSE 71–105; RESP 18–20; TEMP 97.9–98.6; O2SAT 98–99
[~2023-05-23] VITALS: Ht 149.9 cm; Wt 73.3 kg
[2023-05-23] MEDS: QUEtiapine FUMARATE 25 MG TABLET PO SCH ×3 (09:00→16:58)
[2023-05-23] MEDS ORDERED: HydrOXYzine PAMOATE 50 MG CAPSULE PO PRN (10:00)
[2023-05-23] MEDS ORDERED: PROMETHAZINE HCL 25 MG TABLET PO PRN (10:00)
[2023-05-23] MEDS ORDERED: MAGNESIUM HYDROXIDE SUSPENSION 30 ML UDCUP PO PRN (10:00)
[2023-05-23] MEDS ORDERED: TUBERCULIN, PURIFIED PROTEIN DERIVATIVE 5 TU/0.1 ML SYRINGE ID ONE (10:00)
[2023-05-23] MEDS ORDERED: CloNIDine HCL 0.1 MG TABLET PO PRN (10:00)
[2023-05-23] MEDS ORDERED: ACETAMINOPHEN 325 MG TABLET PO PRN (10:00)
[2023-05-23] MEDS ORDERED: IBUPROFEN 600 MG TABLET PO PRN (10:00)
[2023-05-23] MEDS ORDERED: PALIPERIDONE PALMITATE 234 MG/1.5 ML SYRINGE IM ONE (10:00)
[2023-05-23] MEDS ORDERED: LOPERAMIDE HCL 2 MG CAPSULE PO PRN (10:00)
[2023-05-23] MEDS ORDERED: GuaiFENesin/D-METHORPHAN [SUGAR-FREE] 200-20MG/10 ML SYRUP UDCUP PO PRN (10:00)
[2023-05-23] MEDS ORDERED: MAG HYDROX/ALUMINUM HYD/SIMETH ES 30 ML SUSPENSION UDCUP PO PRN ×2 (10:00)
[2023-05-23] MEDS: CloNIDine HCL 0.1 MG TABLET PO SCH ×3 (12:00→22:01)
[2023-05-23] MEDS: PREGABALIN 25 MG CAPSULE PO SCH ×2 (15:56→16:58)
[2023-05-23] MEDS: THIAMINE 100 MG TABLET PO SCH (16:58)
[2023-05-23] MEDS ORDERED: NICOTINE 21 MG/24 HOUR PATCH TD PRN (19:00)
[2023-05-23] MEDS: QUEtiapine FUMARATE 100 MG TABLET PO SCH (20:33)
[2023-05-23] MEDS: MELATONIN 5 MG TABLET PO SCH (20:33)
[2023-05-23] MEDS: NALTREXONE HCL 50 MG TABLET PO SCH (20:33)
[2023-05-24] VITALS (7 sets, daily range): BP systolic 107–146; BP diastolic 72–97; PULSE 77–104; RESP 17–19; TEMP 97.6–98.7; O2SAT 98–99
[2023-05-24] MEDS ORDERED: INFLUENZA VIRUS VACCINE QVS 2023-24 (6MO+)/PF 60 MCG/0.5 ML SYRINGE IM. ONE (01:45)
[2023-05-24] MEDS ORDERED: PNEUMOCOCCAL VACCINE POLYVALENT 0.5 ML SYRINGE [PPSV23] IM. ONE (01:45)
[2023-05-24] MEDS: CloNIDine HCL 0.1 MG TABLET PO SCH ×4 (06:24→21:30)
[2023-05-24] MEDS ORDERED: GLUCAGON,HUMAN RECOMBINANT 1 MG VIAL IM PRN (08:00)
[2023-05-24] MEDS: MULTIVITAMINS WITH MINERALS, THERAPEUTIC TABLET PO SCH (08:45)
[2023-05-24] MEDS: QUEtiapine FUMARATE 25 MG TABLET PO SCH ×3 (08:45→16:18)
[2023-05-24] MEDS: THIAMINE 100 MG TABLET PO SCH ×2 (08:46→16:18)
[2023-05-24] MEDS: DULoxetine HCL 20 MG CAPSULE PO SCH (08:46)
[2023-05-24] MEDS: FOLIC ACID 1 MG TABLET PO SCH (08:46)
[2023-05-24] MEDS: PREGABALIN 25 MG CAPSULE PO SCH ×3 (08:47→16:18)
[2023-05-24] MEDS: OMEGA-3/DHA/EPA/FISH OIL 1,000 MG CAPSULE PO SCH (08:56)
[2023-05-24] MEDS: INSULIN LISPRO 100 UNITS/ML SQ PRN (17:23)
[2023-05-24 17:36] LABS: GLUCOMETER DEV NAME(LOC) BV2S.; GLUCOSE,POINT OF CARE 158 MG/DL (70-110)
[2023-05-24] MEDS: QUEtiapine FUMARATE 100 MG TABLET PO SCH (21:23)
[2023-05-24] MEDS: MELATONIN 5 MG TABLET PO SCH (21:23)
[2023-05-24] MEDS: NALTREXONE HCL 50 MG TABLET PO SCH (21:24)
[2023-05-25 06:22] VITALS: BP 129/84; PULSE 89; RESP 18; TEMP 97.8; O2SAT 98
[2023-05-25] MEDS: CloNIDine HCL 0.1 MG TABLET PO SCH ×4 (06:24→22:04)
[2023-05-25] MEDS: INSULIN LISPRO 100 UNITS/ML SQ PRN ×2 (06:28→16:54)
[2023-05-25 06:31] LABS: GLUCOMETER DEV NAME(LOC) BV2S.; GLUCOSE,POINT OF CARE 147 MG/DL (70-110)
[2023-05-25 08:53] VITALS: BP 129/80; PULSE 86; RESP 18; TEMP 97.8; O2SAT 100
[2023-05-25] MEDS: MULTIVITAMINS WITH MINERALS, THERAPEUTIC TABLET PO SCH (09:32)
[2023-05-25] MEDS: FOLIC ACID 1 MG TABLET PO SCH (09:32)
[2023-05-25] MEDS: QUEtiapine FUMARATE 25 MG TABLET PO SCH ×3 (09:32→16:47)
[2023-05-25] MEDS: PREGABALIN 25 MG CAPSULE PO SCH ×3 (09:32→16:47)
[2023-05-25] MEDS: THIAMINE 100 MG TABLET PO SCH ×2 (09:32→16:46)
[2023-05-25] MEDS: OMEGA-3/DHA/EPA/FISH OIL 1,000 MG CAPSULE PO SCH (09:32)
[2023-05-25] MEDS: DULoxetine HCL 20 MG CAPSULE PO SCH (09:33)
[2023-05-25 11:26] VITALS: BP 135/86
[2023-05-25 16:44] VITALS: BP 130/98
[2023-05-25 20:26] VITALS: BP 129/90; PULSE 95; RESP 18; TEMP 98.4; O2SAT 97
[2023-05-25] MEDS: MELATONIN 5 MG TABLET PO SCH (20:40)
[2023-05-25] MEDS: NALTREXONE HCL 50 MG TABLET PO SCH (20:40)
[2023-05-25] MEDS: QUEtiapine FUMARATE 200 MG TABLET PO SCH (20:40)
[2023-05-26 03:46] LABS: GLUCOMETER DEV NAME(LOC) BV2S.; GLUCOSE,POINT OF CARE 222 MG/DL (70-110)
[2023-05-26] MEDS: CloNIDine HCL 0.1 MG TABLET PO SCH ×4 (06:03→22:10)
[2023-05-26] MEDS: INSULIN LISPRO 100 UNITS/ML SQ PRN ×2 (06:12→17:01)
[2023-05-26 06:22] LABS: GLUCOMETER DEV NAME(LOC) BV2S.; GLUCOSE,POINT OF CARE 145 MG/DL (70-110)
[2023-05-26 08:53] LABS: FREE T4 (FREE THYROXINE) 1.04 ng/dL (0.76-1.46); THYROID STIMULATING HORMONE 0.49 uIU/mL (0.36-3.74)
[2023-05-26] MEDS: THIAMINE 100 MG TABLET PO SCH ×2 (08:57→17:04)
[2023-05-26] MEDS: FOLIC ACID 1 MG TABLET PO SCH (08:58)
[2023-05-26] MEDS: MULTIVITAMINS WITH MINERALS, THERAPEUTIC TABLET PO SCH (08:58)
[2023-05-26] MEDS: DULoxetine HCL 30 MG CAPSULE PO SCH (08:58)
[2023-05-26] MEDS: PREGABALIN 25 MG CAPSULE PO SCH ×3 (08:58→17:03)
[2023-05-26] MEDS: OMEGA-3/DHA/EPA/FISH OIL 1,000 MG CAPSULE PO SCH (08:58)
[2023-05-26] MEDS: QUEtiapine FUMARATE 25 MG TABLET PO SCH ×3 (08:59→17:04)
[2023-05-26 09:02] VITALS: BP 135/84; PULSE 80; RESP 18; TEMP 98.8; O2SAT 98
[2023-05-26] MEDS: LORazepam 2 MG TABLET PO PRN (10:04)
[2023-05-26] MEDS: BACITRACIN 28 GM OINTMENT TP SCH (10:35)
[2023-05-26 11:38] VITALS: BP 133/95
[2023-05-26 16:30] VITALS: BP 121/80
[2023-05-26 16:42] LABS: GLUCOMETER DEV NAME(LOC) BV2S.; GLUCOSE,POINT OF CARE 165 MG/DL (70-110)
[2023-05-26 18:03] VITALS: BP 121/80; PULSE 90; RESP 18; TEMP 93; O2SAT 98
[2023-05-26 20:29] VITALS: BP 120/78; PULSE 88; RESP 18; TEMP 98.3; O2SAT 99
[2023-05-26] MEDS: QUEtiapine FUMARATE 200 MG TABLET PO SCH (20:39)
[2023-05-26] MEDS: MELATONIN 5 MG TABLET PO SCH (20:39)
[2023-05-26] MEDS: NALTREXONE HCL 50 MG TABLET PO SCH (20:40)
[2023-05-26 22:08] VITALS: BP 112/81; PULSE 86; RESP 18; O2SAT 98
[2023-05-27] MEDS: ZOLPIDEM TARTRATE 10 MG TABLET PO PRN ×2 (01:32→21:17)
[2023-05-27 06:31] VITALS: BP 140/90; PULSE 83; RESP 18
[2023-05-27] MEDS: CloNIDine HCL 0.1 MG TABLET PO SCH ×4 (06:33→21:15)
[2023-05-27] MEDS: INSULIN LISPRO 100 UNITS/ML SQ PRN ×2 (06:40→16:57)
[2023-05-27 06:46] LABS: GLUCOMETER DEV NAME(LOC) BV2S.; GLUCOSE,POINT OF CARE 141 MG/DL (70-110)
[2023-05-27 08:20] VITALS: BP 125/87; PULSE 101; RESP 18; TEMP 98.6; O2SAT 97
[2023-05-27] MEDS: FOLIC ACID 1 MG TABLET PO SCH (08:49)
[2023-05-27] MEDS: MULTIVITAMINS WITH MINERALS, THERAPEUTIC TABLET PO SCH (08:49)
[2023-05-27] MEDS: OMEGA-3/DHA/EPA/FISH OIL 1,000 MG CAPSULE PO SCH (08:49)
[2023-05-27] MEDS: THIAMINE 100 MG TABLET PO SCH ×2 (08:49→17:03)
[2023-05-27] MEDS: DULoxetine HCL 30 MG CAPSULE PO SCH (08:50)
[2023-05-27] MEDS: QUEtiapine FUMARATE 25 MG TABLET PO SCH ×3 (08:50→17:02)
[2023-05-27] MEDS: PREGABALIN 25 MG CAPSULE PO SCH ×3 (08:50→17:03)
[2023-05-27] MEDS: BACITRACIN 28 GM OINTMENT TP SCH (08:59)
[2023-05-27] MEDS ORDERED: PALIPERIDONE PALMITATE 156 MG/ML SYRINGE IM ONE (09:00)
[2023-05-27] MEDS: LORazepam 2 MG TABLET PO PRN (10:04)
[2023-05-27 12:00] VITALS: BP 137/94
[2023-05-27 16:37] LABS: GLUCOMETER DEV NAME(LOC) BV2S.; GLUCOSE,POINT OF CARE 178 MG/DL (70-110)
[2023-05-27 17:01] VITALS: BP 129/62
[2023-05-27 20:11] VITALS: BP 129/62; PULSE 70; RESP 18; TEMP 97.8; O2SAT 96
[2023-05-27 21:10] VITALS: BP 132/98
[2023-05-27] MEDS: NALTREXONE HCL 50 MG TABLET PO SCH (21:15)
[2023-05-27] MEDS: MELATONIN 5 MG TABLET PO SCH (21:15)
[2023-05-27] MEDS: QUEtiapine FUMARATE 200 MG TABLET PO SCH (21:15)
[2023-05-28] MEDS: CloNIDine HCL 0.1 MG TABLET PO SCH ×4 (06:13→22:00)
[2023-05-28 08:23] VITALS: BP_SYST 104; BP_SYST 105; BP_DIAS 60; BP_DIAS 61; PULSE 78; PULSE 82; RESP 17; TEMP 97.5; TEMP 97.6; O2SAT 100; O2SAT 97
[2023-05-28 08:57] LABS: GLUCOMETER DEV NAME(LOC) BV2S.; GLUCOSE,POINT OF CARE 120 MG/DL (70-110)
[2023-05-28] MEDS: LORazepam 2 MG TABLET PO PRN (09:31)
[2023-05-28] MEDS: THIAMINE 100 MG TABLET PO SCH ×2 (09:32→16:53)
[2023-05-28] MEDS: MULTIVITAMINS WITH MINERALS, THERAPEUTIC TABLET PO SCH (09:32)
[2023-05-28] MEDS: PREGABALIN 25 MG CAPSULE PO SCH ×3 (09:32→16:53)
[2023-05-28] MEDS: FOLIC ACID 1 MG TABLET PO SCH (09:32)
[2023-05-28] MEDS: DULoxetine HCL 30 MG CAPSULE PO SCH (09:32)
[2023-05-28] MEDS: QUEtiapine FUMARATE 25 MG TABLET PO SCH ×3 (09:32→16:52)
[2023-05-28] MEDS: OMEGA-3/DHA/EPA/FISH OIL 1,000 MG CAPSULE PO SCH (09:32)
[2023-05-28] MEDS: BACITRACIN 28 GM OINTMENT TP SCH (09:33)
[2023-05-28 16:52] VITALS: BP 120/83; PULSE 102; RESP 17
[2023-05-28] MEDS: INSULIN LISPRO 100 UNITS/ML SQ PRN ×2 (17:06→20:34)
[2023-05-28] MEDS ORDERED: ESZOPICLONE 3 MG TABLET PO PRN (17:15)
[2023-05-28 17:16] LABS: GLUCOMETER DEV NAME(LOC) BV2S.; GLUCOSE,POINT OF CARE 202 MG/DL (70-110)
[2023-05-28] MEDS: MELATONIN 5 MG TABLET PO SCH (20:13)
[2023-05-28] MEDS: NALTREXONE HCL 50 MG TABLET PO SCH (20:13)
[2023-05-28] MEDS: QUEtiapine FUMARATE 200 MG TABLET PO SCH (20:13)
[2023-05-28 22:36] LABS: GLUCOMETER DEV NAME(LOC) BV2S.; GLUCOSE,POINT OF CARE 146 MG/DL (70-110)
[2023-05-29 00:20] VITALS: BP 119/79; PULSE 100; RESP 18; TEMP 98; O2SAT 97
[2023-05-29 05:07] LABS: HEPATITIS C AB (EIA) Non Reactive (Non Reactive)
[2023-05-29] MEDS: CloNIDine HCL 0.1 MG TABLET PO SCH ×4 (06:00→21:10)
[2023-05-29 06:26] LABS: GLUCOMETER DEV NAME(LOC) BV2S.; GLUCOSE,POINT OF CARE 126 MG/DL (70-110)
[2023-05-29 08:17] VITALS: BP 127/76; PULSE 92; RESP 17; TEMP 97.7; O2SAT 100
[2023-05-29] MEDS: MULTIVITAMINS WITH MINERALS, THERAPEUTIC TABLET PO SCH (09:08)
[2023-05-29] MEDS: OMEGA-3/DHA/EPA/FISH OIL 1,000 MG CAPSULE PO SCH (09:08)
[2023-05-29] MEDS: FOLIC ACID 1 MG TABLET PO SCH (09:08)
[2023-05-29] MEDS: QUEtiapine FUMARATE 25 MG TABLET PO SCH ×3 (09:08→16:34)
[2023-05-29] MEDS: PREGABALIN 25 MG CAPSULE PO SCH ×3 (09:08→16:33)
[2023-05-29] MEDS: THIAMINE 100 MG TABLET PO SCH ×2 (09:08→16:34)
[2023-05-29] MEDS: BACITRACIN 28 GM OINTMENT TP SCH (09:09)
[2023-05-29] MEDS: DULoxetine HCL 60 MG CAPSULE PO SCH (09:41)
[2023-05-29] MEDS: HydrOXYzine PAMOATE 50 MG CAPSULE PO PRN (12:42)
[2023-05-29 16:25] LABS: GLUCOMETER DEV NAME(LOC) BV2S.; GLUCOSE,POINT OF CARE 141 MG/DL (70-110)
[2023-05-29 16:32] VITALS: BP 144/85; PULSE 84; RESP 18; TEMP 97.7
[2023-05-29] MEDS: INSULIN LISPRO 100 UNITS/ML SQ PRN ×2 (16:44→20:07)
[2023-05-29 20:18] VITALS: BP 145/74; PULSE 107; RESP 18; TEMP 98.2; O2SAT 97
[2023-05-29] MEDS: NALTREXONE HCL 50 MG TABLET PO SCH (21:10)
[2023-05-29] MEDS: QUEtiapine FUMARATE 200 MG TABLET PO SCH (21:10)
[2023-05-29] MEDS: MELATONIN 5 MG TABLET PO SCH (21:10)
[2023-05-29 23:31] LABS: GLUCOMETER DEV NAME(LOC) BV2S.; GLUCOSE,POINT OF CARE 173 MG/DL (70-110)
[2023-05-30 05:55] VITALS: BP 139/82; PULSE 88; RESP 18; TEMP 97.8
[2023-05-30] MEDS: CloNIDine HCL 0.1 MG TABLET PO SCH ×4 (05:57→22:00)
[2023-05-30 06:06] LABS: GLUCOMETER DEV NAME(LOC) BV2S.; GLUCOSE,POINT OF CARE 121 MG/DL (70-110)
[2023-05-30] MEDS: FOLIC ACID 1 MG TABLET PO SCH (08:04)
[2023-05-30] MEDS: QUEtiapine FUMARATE 25 MG TABLET PO SCH ×3 (08:04→16:09)
[2023-05-30] MEDS: PREGABALIN 25 MG CAPSULE PO SCH ×2 (08:04→12:22)
[2023-05-30] MEDS: MULTIVITAMINS WITH MINERALS, THERAPEUTIC TABLET PO SCH (08:04)
[2023-05-30] MEDS: THIAMINE 100 MG TABLET PO SCH ×2 (08:05→16:10)
[2023-05-30] MEDS: DULoxetine HCL 60 MG CAPSULE PO SCH (08:05)
[2023-05-30] MEDS: BACITRACIN 28 GM OINTMENT TP SCH (08:06)
[2023-05-30 08:10] LABS: BASOPHILS % (AUTO) 0.6 % (0.0-2.0); EOSINOPHILS % (AUTO) 2.5 % (1.0-6.0); HEMATOCRIT 30.1 % (36-46); HEMOGLOBIN 9.9 g/dL (12.0-16.0); LYMPHOCYTES # (AUTO) 1.5 K/uL (1.0-4.8); LYMPHOCYTES % (AUTO) 21.3 % (22.0-44.0); MEAN CORPUSCULAR HEMOGLOBIN 25.6 pg (26.0-34.0); MEAN CORPUSCULAR HGB CONC 32.7 G/dL (31.0-37.0); MEAN CORPUSCULAR VOLUME 78 fL (80-100); MONOCYTES # (AUTO) 0.4 K/uL (0.1-1.0); MONOCYTES % (AUTO) 5.2 % (2.0-9.0); NEUTROPHILS # (AUTO) 4.9 K/uL (1.8-7.7); NEUTROPHILS % (AUTO) 70.4 % (40.0-70.0); PLATELET COUNT (AUTO) 268 K/uL (150-450); RED BLOOD CELL COUNT(AUTO) 3.84 MIL/uL (4.00-5.20); RED CELL DISTRIBUTION WIDTH 17.7 % (11.5-14.5); WHITE BLOOD COUNT (AUTO) 6.9 K/uL (4.5-11.0)
[2023-05-30 08:13] VITALS: BP 114/68; PULSE 87; RESP 18; TEMP 97.8; O2SAT 100
[2023-05-30] MEDS: OMEGA-3/DHA/EPA/FISH OIL 1,000 MG CAPSULE PO SCH (08:13)
[2023-05-30 08:29] LABS: HEMOGLOBIN A1C 6.1 % (3.8-5.6)
[2023-05-30 08:41] LABS: ALANINE AMINOTRANSFERASE 16 U/L (12-78); ALBUMIN 2.8 g/dL (3.4-5.0); ALKALINE PHOSPHATASE 75 U/L (46-116); ANION GAP 9 mmol/L (8-16); ASPARTATE AMINOTRANSFERASE 9 U/L (15-37); BILIRUBIN,TOTAL 0.2 mg/dL (0.1-1.0); CALCIUM, TOTAL 8.6 mg/dL (8.8-10.5); CARBON DIOXIDE 24 mmol/L (22-29); CHLORIDE 103 mmol/L (98-107); CHOL/HDL RATIO 2.9 (3.9-5.7); CHOLESTEROL 113 mg/dL (131-200); CREATININE 0.69 mg/dL (0.60-1.30); GLOMERULAR FILTR. RATE CALC > 60 mL/min (>60); GLUCOSE,RANDOM 220 mg/dL (70-110); HDL CHOLESTEROL 39 mg/dL (40-60); LDL CHOL (CALC.) 54 mg/dL (0-130); SODIUM SERUM 136 mmol/L (136-145); TRIGLYCERIDES 102 mg/dL (15-150); UREA NITROGEN, BLOOD 18 mg/dL (7-18)
[2023-05-30] MEDS: GABAPENTIN 300 MG CAPSULE PO PRN (09:03)
[2023-05-30 12:22] VITALS: BP 127/79; PULSE 105; RESP 17
[2023-05-30 16:10] VITALS: BP 122/88; PULSE 98; RESP 17
[2023-05-30] MEDS: PREGABALIN 75 MG CAPSULE PO SCH (16:12)
[2023-05-30] MEDS: INSULIN LISPRO 100 UNITS/ML SQ PRN (16:17)
[2023-05-30 17:27] LABS: GLUCOMETER DEV NAME(LOC) BV2S.; GLUCOSE,POINT OF CARE 155 MG/DL (70-110)
[2023-05-30] MEDS: NALTREXONE HCL 50 MG TABLET PO SCH (20:02)
[2023-05-30] MEDS: MELATONIN 5 MG TABLET PO SCH (20:02)
[2023-05-30] MEDS: QUEtiapine FUMARATE 200 MG TABLET PO SCH (20:02)
[2023-05-30 20:12] VITALS: BP 126/72; PULSE 84; RESP 18; TEMP 97.7; O2SAT 97
[2023-05-31] MEDS: QUEtiapine FUMARATE 100 MG TABLET PO PRN (04:23)
[2023-05-31 06:02] LABS: GLUCOMETER DEV NAME(LOC) BV2S.; GLUCOSE,POINT OF CARE 126 MG/DL (70-110)
[2023-05-31 06:07] VITALS: BP 132/86; PULSE 83; RESP 18; TEMP 97.8
[2023-05-31] MEDS: CloNIDine HCL 0.1 MG TABLET PO SCH ×4 (06:08→21:43)
[2023-05-31 08:41] VITALS: BP 139/90; PULSE 96; RESP 19; TEMP 98.6; O2SAT 99
[2023-05-31] MEDS: OMEGA-3/DHA/EPA/FISH OIL 1,000 MG CAPSULE PO SCH (08:52)
[2023-05-31] MEDS: PREGABALIN 75 MG CAPSULE PO SCH ×2 (08:52→12:49)
[2023-05-31] MEDS: FOLIC ACID 1 MG TABLET PO SCH (08:53)
[2023-05-31] MEDS: QUEtiapine FUMARATE 25 MG TABLET PO SCH ×3 (08:53→16:37)
[2023-05-31] MEDS: MULTIVITAMINS WITH MINERALS, THERAPEUTIC TABLET PO SCH (08:53)
[2023-05-31] MEDS: THIAMINE 100 MG TABLET PO SCH ×2 (08:53→16:36)
[2023-05-31] MEDS: DULoxetine HCL 30 MG CAPSULE PO SCH (08:53)
[2023-05-31 11:52] VITALS: BP 141/98; RESP 19; O2SAT 99
[2023-05-31] MEDS: GABAPENTIN 300 MG CAPSULE PO PRN (11:58)
[2023-05-31 16:16] LABS: GLUCOMETER DEV NAME(LOC) BV2S.; GLUCOSE,POINT OF CARE 171 MG/DL (70-110)
[2023-05-31 16:35] VITALS: BP 128/90
[2023-05-31] MEDS: INSULIN LISPRO 100 UNITS/ML SQ PRN (16:52)
[2023-05-31] MEDS: PREGABALIN 50 MG CAPSULE PO SCH (17:49)
[2023-05-31] MEDS: MELATONIN 5 MG TABLET PO SCH (21:02)
[2023-05-31] MEDS: NALTREXONE HCL 50 MG TABLET PO SCH (21:02)
[2023-05-31] MEDS: QUEtiapine FUMARATE 200 MG TABLET PO SCH (21:03)
[2023-05-31 21:31] VITALS: BP 120/82; PULSE 20; RESP 18; TEMP 98.3
[2023-05-31 21:33] VITALS: BP 120/82; PULSE 18; RESP 18; TEMP 98.3
[2023-06-01 06:22] VITALS: BP 130/75; PULSE 17; RESP 18; TEMP 98
[2023-06-01] MEDS: CloNIDine HCL 0.1 MG TABLET PO SCH ×4 (06:23→22:00)
[2023-06-01 06:26] LABS: GLUCOMETER DEV NAME(LOC) BV2S.; GLUCOSE,POINT OF CARE 118 MG/DL (70-110)
[2023-06-01 08:42] VITALS: BP 121/77; PULSE 91; RESP 17; TEMP 97.9; O2SAT 100
[2023-06-01] MEDS: DULoxetine HCL 30 MG CAPSULE PO SCH (09:29)
[2023-06-01] MEDS: MULTIVITAMINS WITH MINERALS, THERAPEUTIC TABLET PO SCH (09:29)
[2023-06-01] MEDS: OMEGA-3/DHA/EPA/FISH OIL 1,000 MG CAPSULE PO SCH ×2 (09:29→09:49)
[2023-06-01] MEDS: QUEtiapine FUMARATE 25 MG TABLET PO SCH ×3 (09:29→16:14)
[2023-06-01] MEDS: PREGABALIN 50 MG CAPSULE PO SCH ×3 (09:29→16:14)
[2023-06-01] MEDS: THIAMINE 100 MG TABLET PO SCH ×2 (09:29→16:14)
[2023-06-01] MEDS: FOLIC ACID 1 MG TABLET PO SCH (09:30)
[2023-06-01] MEDS: GABAPENTIN 300 MG CAPSULE PO PRN (10:50)
[2023-06-01 16:38] VITALS: BP 149/121; PULSE 109; RESP 18
[2023-06-01 16:56] LABS: GLUCOMETER DEV NAME(LOC) BV2S.; GLUCOSE,POINT OF CARE 119 MG/DL (70-110)
[2023-06-01 17:41] VITALS: BP 124/71; PULSE 98; RESP 17
[2023-06-01] MEDS: QUEtiapine FUMARATE 200 MG TABLET PO SCH (20:03)
[2023-06-01] MEDS: NALTREXONE HCL 50 MG TABLET PO SCH (20:03)
[2023-06-01] MEDS: MELATONIN 5 MG TABLET PO SCH (20:03)
[2023-06-01 22:05] VITALS: BP 118/83; PULSE 87; RESP 17
[2023-06-02] MEDS: CloNIDine HCL 0.1 MG TABLET PO SCH ×4 (06:17→22:00)
[2023-06-02 07:11] LABS: GLUCOMETER DEV NAME(LOC) BV2S.; GLUCOSE,POINT OF CARE 106 MG/DL (70-110)
[2023-06-02] MEDS: MULTIVITAMINS WITH MINERALS, THERAPEUTIC TABLET PO SCH (08:13)
[2023-06-02] MEDS: PREGABALIN 50 MG CAPSULE PO SCH ×3 (08:13→16:25)
[2023-06-02] MEDS: DULoxetine HCL 60 MG CAPSULE PO SCH (08:14)
[2023-06-02] MEDS: FOLIC ACID 1 MG TABLET PO SCH (08:14)
[2023-06-02] MEDS: OMEGA-3/DHA/EPA/FISH OIL 1,000 MG CAPSULE PO SCH (08:18)
[2023-06-02 08:47] VITALS: BP 130/86; PULSE 91; RESP 18; TEMP 98.4
[2023-06-02] MEDS: QUEtiapine FUMARATE 100 MG TABLET PO PRN (08:53)
[2023-06-02 12:15] VITALS: BP 124/86; PULSE 90; RESP 17; O2SAT 98
[2023-06-02] MEDS: INSULIN LISPRO 100 UNITS/ML SQ PRN (16:28)
[2023-06-02 16:56] LABS: GLUCOMETER DEV NAME(LOC) BV2S.; GLUCOSE,POINT OF CARE 159 MG/DL (70-110)
[2023-06-02] MEDS: NALTREXONE HCL 50 MG TABLET PO SCH (20:05)
[2023-06-02] MEDS: QUEtiapine FUMARATE 200 MG TABLET PO SCH (20:05)
[2023-06-02] MEDS: MELATONIN 5 MG TABLET PO SCH (20:05)
[2023-06-02 20:31] VITALS: BP 135/83; PULSE 108; RESP 18; TEMP 98.1; O2SAT 97
[2023-06-03] MEDS: CloNIDine HCL 0.1 MG TABLET PO SCH ×4 (06:00→22:19)
[2023-06-03 06:26] LABS: GLUCOMETER DEV NAME(LOC) BV2S.; GLUCOSE,POINT OF CARE 118 MG/DL (70-110)
[2023-06-03 08:11] VITALS: BP 136/80; PULSE 97; RESP 18; TEMP 97.7; O2SAT 97
[2023-06-03] MEDS: MULTIVITAMINS WITH MINERALS, THERAPEUTIC TABLET PO SCH (08:47)
[2023-06-03] MEDS: DULoxetine HCL 60 MG CAPSULE PO SCH (08:47)
[2023-06-03] MEDS: OMEGA-3/DHA/EPA/FISH OIL 1,000 MG CAPSULE PO SCH (08:47)
[2023-06-03] MEDS: PREGABALIN 50 MG CAPSULE PO SCH ×3 (08:47→17:01)
[2023-06-03] MEDS: HydrOXYzine PAMOATE 50 MG CAPSULE PO PRN (10:41)
[2023-06-03 11:54] VITALS: BP 136/86; RESP 18
[2023-06-03] MEDS: QUEtiapine FUMARATE 100 MG TABLET PO PRN (13:13)
[2023-06-03] MEDS: GABAPENTIN 300 MG CAPSULE PO PRN ×2 (13:13→21:19)
[2023-06-03 16:26] VITALS: BP 143/93; RESP 18
[2023-06-03 16:41] LABS: GLUCOMETER DEV NAME(LOC) BV2S.; GLUCOSE,POINT OF CARE 111 MG/DL (70-110)
[2023-06-03] MEDS: QUEtiapine FUMARATE 200 MG TABLET PO SCH (21:19)
[2023-06-03] MEDS: NALTREXONE HCL 50 MG TABLET PO SCH (21:19)
[2023-06-03] MEDS: MELATONIN 5 MG TABLET PO SCH (21:20)
[2023-06-03 22:08] VITALS: BP 133/84; PULSE 100; RESP 18; TEMP 98.2; O2SAT 98
[2023-06-04 06:01] VITALS: BP 126/84; PULSE 77; RESP 18; TEMP 97.8
[2023-06-04] MEDS: CloNIDine HCL 0.1 MG TABLET PO SCH ×4 (06:02→21:03)
[2023-06-04 06:21] LABS: GLUCOMETER DEV NAME(LOC) BV2S.; GLUCOSE,POINT OF CARE 105 MG/DL (70-110)
[2023-06-04] MEDS: MULTIVITAMINS WITH MINERALS, THERAPEUTIC TABLET PO SCH (08:36)
[2023-06-04] MEDS: OMEGA-3/DHA/EPA/FISH OIL 1,000 MG CAPSULE PO SCH (08:36)
[2023-06-04] MEDS: PREGABALIN 50 MG CAPSULE PO SCH ×3 (08:37→16:22)
[2023-06-04] MEDS: DULoxetine HCL 60 MG CAPSULE PO SCH (08:37)
[2023-06-04] MEDS: HydrOXYzine PAMOATE 50 MG CAPSULE PO PRN (08:40)
[2023-06-04 09:34] VITALS: BP 118/85; PULSE 95; RESP 16; TEMP 97.9; O2SAT 99
[2023-06-04] MEDS: QUEtiapine FUMARATE 100 MG TABLET PO PRN (10:29)
[2023-06-04] MEDS ORDERED: HydrOXYzine PAMOATE 50 MG CAPSULE PO PRN (12:00)
[2023-06-04] MEDS: BusPIRone HCL 5 MG TABLET PO SCH ×3 (12:38→20:11)
[2023-06-04 17:06] LABS: GLUCOMETER DEV NAME(LOC) BV2S.; GLUCOSE,POINT OF CARE 154 MG/DL (70-110)
[2023-06-04 20:07] VITALS: BP 136/85; PULSE 105; RESP 18; TEMP 97.9; O2SAT 96
[2023-06-04] MEDS: QUEtiapine FUMARATE 200 MG TABLET PO SCH (20:11)
[2023-06-04] MEDS: MELATONIN 5 MG TABLET PO SCH (20:11)
[2023-06-04] MEDS: NALTREXONE HCL 50 MG TABLET PO SCH (20:11)
[2023-06-05 04:53] VITALS: BP 136/94; PULSE 90; RESP 19; TEMP 98.1; O2SAT 96
[2023-06-05] MEDS: CloNIDine HCL 0.1 MG TABLET PO SCH ×4 (06:06→21:18)
[2023-06-05 06:08] VITALS: BP 133/99; PULSE 95; RESP 18; TEMP 97.9; O2SAT 98
[2023-06-05 06:26] LABS: GLUCOMETER DEV NAME(LOC) BV2S.; GLUCOSE,POINT OF CARE 93 MG/DL (70-110)
[2023-06-05 08:17] VITALS: BP 100/62; PULSE 82; RESP 18; TEMP 97.9; O2SAT 97
[2023-06-05] MEDS: BusPIRone HCL 5 MG TABLET PO SCH ×3 (08:59→20:40)
[2023-06-05] MEDS: MULTIVITAMINS WITH MINERALS, THERAPEUTIC TABLET PO SCH (08:59)
[2023-06-05] MEDS: OMEGA-3/DHA/EPA/FISH OIL 1,000 MG CAPSULE PO SCH (08:59)
[2023-06-05] MEDS: DULoxetine HCL 60 MG CAPSULE PO SCH (08:59)
[2023-06-05] MEDS: PREGABALIN 50 MG CAPSULE PO SCH ×3 (08:59→16:55)
[2023-06-05] MEDS: GABAPENTIN 300 MG CAPSULE PO PRN (11:14)
[2023-06-05 11:53] VITALS: BP 136/90; RESP 18; O2SAT 97
[2023-06-05 16:16] LABS: GLUCOMETER DEV NAME(LOC) BV2S.; GLUCOSE,POINT OF CARE 135 MG/DL (70-110)
[2023-06-05 16:53] VITALS: BP 135/91; RESP 18; O2SAT 97
[2023-06-05] MEDS: MELATONIN 5 MG TABLET PO SCH (20:40)
[2023-06-05] MEDS: NALTREXONE HCL 50 MG TABLET PO SCH (20:40)
[2023-06-05] MEDS: QUEtiapine FUMARATE 200 MG TABLET PO SCH (20:40)
[2023-06-05 21:16] VITALS: BP 91/57; PULSE 85; RESP 16; TEMP 97.8; O2SAT 99
[2023-06-06 06:03] VITALS: BP 108/68; PULSE 89; RESP 18; TEMP 97.7
[2023-06-06 06:15] LABS: GLUCOMETER DEV NAME(LOC) BV2S.; GLUCOSE,POINT OF CARE 109 MG/DL (70-110)
[2023-06-06] MEDS: CloNIDine HCL 0.1 MG TABLET PO SCH ×4 (06:15→22:05)
[2023-06-06] MEDS: DULoxetine HCL 60 MG CAPSULE PO SCH (08:20)
[2023-06-06] MEDS: MULTIVITAMINS WITH MINERALS, THERAPEUTIC TABLET PO SCH (08:20)
[2023-06-06] MEDS: BusPIRone HCL 5 MG TABLET PO SCH ×3 (08:20→21:37)
[2023-06-06] MEDS: PREGABALIN 50 MG CAPSULE PO SCH ×3 (08:20→16:58)
[2023-06-06] MEDS: OMEGA-3/DHA/EPA/FISH OIL 1,000 MG CAPSULE PO SCH (08:20)
[2023-06-06 08:24] VITALS: BP 134/86; PULSE 96; RESP 18; TEMP 97.8; O2SAT 96
[2023-06-06] MEDS: GABAPENTIN 300 MG CAPSULE PO PRN (10:41)
[2023-06-06 11:38] VITALS: BP 132/87; RESP 18; O2SAT 96
[2023-06-06 16:26] LABS: GLUCOMETER DEV NAME(LOC) BV2S.; GLUCOSE,POINT OF CARE 133 MG/DL (70-110)
[2023-06-06 16:55] VITALS: BP 133/92; PULSE 100; RESP 17; TEMP 97.7; O2SAT 99
[2023-06-06 20:59] VITALS: BP 123/89; PULSE 99; RESP 17; TEMP 97.7; O2SAT 99
[2023-06-06] MEDS: MELATONIN 5 MG TABLET PO SCH (21:37)
[2023-06-06] MEDS: NALTREXONE HCL 50 MG TABLET PO SCH (21:37)
[2023-06-06] MEDS: QUEtiapine FUMARATE 200 MG TABLET PO SCH (21:37)
[2023-06-06 21:59] VITALS: BP 112/81; PULSE 85
[2023-06-07 06:21] LABS: GLUCOMETER DEV NAME(LOC) BV2S.; GLUCOSE,POINT OF CARE 98 MG/DL (70-110)
[2023-06-07] MEDS: CloNIDine HCL 0.1 MG TABLET PO SCH ×4 (06:45→20:19)
[2023-06-07 08:31] VITALS: BP 128/72; PULSE 92; RESP 18; TEMP 97.8; O2SAT 98
[2023-06-07] MEDS: OMEGA-3/DHA/EPA/FISH OIL 1,000 MG CAPSULE PO SCH (09:13)
[2023-06-07] MEDS: PREGABALIN 50 MG CAPSULE PO SCH ×3 (09:14→16:18)
[2023-06-07] MEDS: MULTIVITAMINS WITH MINERALS, THERAPEUTIC TABLET PO SCH (09:14)
[2023-06-07] MEDS: BusPIRone HCL 5 MG TABLET PO SCH ×3 (09:14→20:19)
[2023-06-07] MEDS: DULoxetine HCL 60 MG CAPSULE PO SCH (09:14)
[2023-06-07 11:28] VITALS: BP 144/93; RESP 18; O2SAT 98
[2023-06-07] MEDS: GABAPENTIN 300 MG CAPSULE PO PRN (12:47)
[2023-06-07] MEDS: INSULIN LISPRO 100 UNITS/ML SQ PRN (16:22)
[2023-06-07 16:26] LABS: GLUCOMETER DEV NAME(LOC) BV2S.; GLUCOSE,POINT OF CARE 206 MG/DL (70-110)
[2023-06-07] MEDS ORDERED: OMEG-135 PO (19:30)
[2023-06-07] MEDS ORDERED: DULO-113 PO (19:30)
[2023-06-07] MEDS ORDERED: MELA5TAB40 PO (19:30)
[2023-06-07] MEDS ORDERED: NALT50TA PO (19:30)
[2023-06-07] MEDS ORDERED: PREG50 PO (19:30)
[2023-06-07] MEDS ORDERED: QUET200T30 PO (19:30)
[2023-06-07] MEDS ORDERED: BUSP5TAB20 PO (19:30)
[2023-06-07] MEDS: QUEtiapine FUMARATE 200 MG TABLET PO SCH (20:19)
[2023-06-07] MEDS: NALTREXONE HCL 50 MG TABLET PO SCH (20:19)
[2023-06-07] MEDS: MELATONIN 5 MG TABLET PO SCH (20:19)
[2023-06-07 20:43] VITALS: BP 136/85; PULSE 106; RESP 18; TEMP 97.9; O2SAT 97
[2023-06-08] MEDS: CloNIDine HCL 0.1 MG TABLET PO SCH (06:38)
[2023-06-08 07:51] LABS: GLUCOMETER DEV NAME(LOC) BV2S.; GLUCOSE,POINT OF CARE 105 MG/DL (70-110)
[2023-06-08] MEDS: OMEGA-3/DHA/EPA/FISH OIL 1,000 MG CAPSULE PO SCH (08:08)
[2023-06-08] MEDS: BusPIRone HCL 5 MG TABLET PO SCH (08:08)
[2023-06-08] MEDS: PREGABALIN 50 MG CAPSULE PO SCH (08:08)
[2023-06-08] MEDS: DULoxetine HCL 60 MG CAPSULE PO SCH (08:08)
[2023-06-08] MEDS: MULTIVITAMINS WITH MINERALS, THERAPEUTIC TABLET PO SCH (08:08)
[2023-06-08 08:25] VITALS: BP 127/82; PULSE 96; RESP 18; TEMP 98.3; O2SAT 99
== END 2023-06-08 08:30 | disposition home or self-care (01) | DRG 750 ==
LOC: B2S 15:23
PROVIDERS: ADMIT Psychiatry & Neurology Psychiatry; ATTEND Psychiatry & Neurology Psychiatry
DX: F25.1 Schizoaffective disorder, depressive type (principal); D64.9 Anemia, unspecified; E11.9 Type 2 diabetes mellitus without complications; F17.200 Nicotine dependence, unspecified, uncomplicated; I10 Essential (primary) hypertension; F11.13 Opioid abuse with withdrawal; K21.9 Gastro-esophageal reflux disease without esophagitis; J44.9 Chronic obstructive pulmonary disease, unspecified; Z59.00 Homelessness unspecified; Z55.9 Problems related to education and literacy, unspecified; Z65.3 Problems related to other legal circumstances; Z79.899 Other long term (current) drug therapy; Z63.9 Problem related to primary support group, unspecified; Z90.49 Acquired absence of other specified parts of digestive tract
CPT/HCPCS: 80053; 80061; 82962; 83036; 84439; 84443; 85025; 86803; 87340; Q9967

== ENCOUNTER 2023-06-12 11:50 | Inpatient (IN) | payer MEDICAID, OTHER ==
[~2023-06-12] VITALS: Ht 149.9 cm; Wt 76.7 kg
[~2023-06-12 11:50] MED LIST changes: -BACI28.410 TP; +BUSP5TAB20 PO; -CEPH-558 PO; -DOXY-354 PO; +DULO-113 PO; +MELA5TAB40 PO; +NALT50TA PO; +OMEG-135 PO; +QUET200T30 PO
[2023-06-12] MEDS ORDERED: BACITRACIN 0.9 GM PACKET OINTMENT TP ONE (12:15)
[2023-06-12] MEDS ORDERED: OLANZapine 5 MG TABLET PO ONE (12:30)
[2023-06-12] MEDS ORDERED: LORazepam 1 MG TABLET PO ONE (12:30)
[2023-06-12 12:45] LABS: BASOPHILS % (AUTO) 0.8 % (0.0-2.0); EOSINOPHILS % (AUTO) 0.8 % (1.0-6.0); HEMATOCRIT 32.1 % (36-46); HEMOGLOBIN 10.5 g/dL (12.0-16.0); LYMPHOCYTES # (AUTO) 1.3 K/uL (1.0-4.8); LYMPHOCYTES % (AUTO) 26.1 % (22.0-44.0); MEAN CORPUSCULAR HEMOGLOBIN 25.8 pg (26.0-34.0); MEAN CORPUSCULAR HGB CONC 32.7 G/dL (31.0-37.0); MEAN CORPUSCULAR VOLUME 79 fL (80-100); MONOCYTES # (AUTO) 0.3 K/uL (0.1-1.0); MONOCYTES % (AUTO) 5.6 % (2.0-9.0); NEUTROPHILS # (AUTO) 3.4 K/uL (1.8-7.7); NEUTROPHILS % (AUTO) 66.7 % (40.0-70.0); PLATELET COUNT (AUTO) 285 K/uL (150-450); RED BLOOD CELL COUNT(AUTO) 4.07 MIL/uL (4.00-5.20); RED CELL DISTRIBUTION WIDTH 18.9 % (11.5-14.5); WHITE BLOOD COUNT (AUTO) 5.1 K/uL (4.5-11.0)
[2023-06-12 12:50] LABS: COVID AG,FIA SOURCE NASAL SWAB
[2023-06-12 12:50] LABS: ANION GAP 10 mmol/L (8-16); CALCIUM, TOTAL 8.7 mg/dL (8.8-10.5); CARBON DIOXIDE 23 mmol/L (22-29); CHLORIDE 102 mmol/L (98-107); CREATININE 0.54 mg/dL (0.60-1.30); GLOMERULAR FILTR. RATE CALC > 60 mL/min (>60); GLUCOSE,RANDOM 123 mg/dL (70-110); POTASSIUM 3.9 mmol/L (3.5-5.1); SODIUM SERUM 135 mmol/L (136-145); UREA NITROGEN, BLOOD 17 mg/dL (7-18)
[2023-06-12 12:53] LABS: SARS-COV2 (COVID) ANTIGEN,FIA Negative (Negative)
[2023-06-12 13:01] LABS: ALANINE AMINOTRANSFERASE 23 U/L (12-78); ALBUMIN 3.3 g/dL (3.4-5.0); ALCOHOL, BLOOD (SERUM) < 3 mg/dL (0-10); ALKALINE PHOSPHATASE 73 U/L (46-116); ASPARTATE AMINOTRANSFERASE 10 U/L (15-37); BILIRUBIN,TOTAL 0.2 mg/dL (0.1-1.0); TOTAL PROTEIN, SERUM 7.3 g/dL (6.4-8.2)
[2023-06-12] MEDS ORDERED: ZOLPIDEM TARTRATE 10 MG TABLET PO PRN (13:30)
[2023-06-12] MEDS ORDERED: LORazepam 2 MG TABLET PO PRN (13:30)
[2023-06-12 14:07] VITALS: BP 125/76; PULSE 87; RESP 17; TEMP 98.4
[2023-06-12 14:16] LABS: APPEARANCE,URINE CLEAR (CLEAR); BILIRUBIN,URINE NEGATIVE (NEGATIVE); COLOR,URINE YELLOW (YELLOW); GLUCOSE, URINE (UA) NEGATIVE (NEGATIVE); KETONES,URINE NEGATIVE (NEGATIVE); LEUKOCYTE ESTERASE ,URINE NEGATIVE (NEGATIVE); NITRATE,URINE NEGATIVE (NEGATIVE); OCCULT BLOOD,URINE NEGATIVE (NEGATIVE); PROTEIN,URINE TRACE mg/dL (NEGATIVE); SPECIFIC GRAVITIY, URINE 1.026 (1.003-1.030); UROBILINOGEN,URINE <=1.0 mg/dL (<=1.0)
[2023-06-12 14:23] LABS: AMPHET/METH SCREEN,URINE NEGATIVE (NEGATIVE); BARBITURATE SCREEN, URINE NEGATIVE (NEGATIVE); BENZODIAZEPINES SCREEN,URINE NEGATIVE (NEGATIVE); CANNABINOID SCREEN,URINE NEGATIVE (NEGATIVE); COCAINE SCREEN,URINE NEGATIVE (NEGATIVE); METHADONE SCREEN, URINE NEGATIVE (NEGATIVE); OPIATE SCREEN,URINE NEGATIVE (NEGATIVE); PHENCYCLIDINE SCREEN,URINE NEGATIVE (NEGATIVE)
[2023-06-12 14:24] LABS: ALCOHOL, URINE DRUG SCREEN NEGATIVE (NEGATIVE)
[2023-06-13] VITALS (7 sets, daily range): BP systolic 111–136; BP diastolic 73–92; PULSE 89–103; RESP 18; TEMP 97.8–98.1; O2SAT 97–100
[2023-06-13] MEDS: OLANZapine 5 MG RAPDIS TABLET PO PRN (08:02)
[2023-06-13] MEDS ORDERED: HydrOXYzine PAMOATE 50 MG CAPSULE PO PRN (11:30)
[2023-06-13] MEDS ORDERED: MAG HYDROX/ALUMINUM HYD/SIMETH ES 30 ML SUSPENSION UDCUP PO PRN ×2 (11:30)
[2023-06-13] MEDS ORDERED: ACETAMINOPHEN 325 MG TABLET PO PRN (11:30)
[2023-06-13] MEDS ORDERED: IBUPROFEN 600 MG TABLET PO PRN (11:30)
[2023-06-13] MEDS ORDERED: LOPERAMIDE HCL 2 MG CAPSULE PO PRN (11:30)
[2023-06-13] MEDS ORDERED: CloNIDine HCL 0.1 MG TABLET PO PRN (11:30)
[2023-06-13] MEDS ORDERED: PROMETHAZINE HCL 25 MG TABLET PO PRN (11:30)
[2023-06-13] MEDS ORDERED: GuaiFENesin/D-METHORPHAN [SUGAR-FREE] 200-20MG/10 ML SYRUP UDCUP PO PRN (11:30)
[2023-06-13] MEDS ORDERED: MAGNESIUM HYDROXIDE SUSPENSION 30 ML UDCUP PO PRN (11:30)
[2023-06-13] MEDS ORDERED: CloNIDine HCL 0.1 MG TABLET PO SCH (12:00)
[2023-06-13] MEDS ORDERED: GLUCAGON,HUMAN RECOMBINANT 1 MG VIAL IM PRN ×2 (13:00→15:45)
[2023-06-13] MEDS ORDERED: NICOTINE 21 MG/24 HOUR PATCH TD PRN (13:00)
[2023-06-13] MEDS ORDERED: INSULIN LISPRO 100 UNITS/ML SQ PRN (13:00)
[2023-06-13] MEDS ORDERED: INFLUENZA VIRUS VACCINE QVS 2023-24 (6MO+)/PF 60 MCG/0.5 ML SYRINGE IM. ONE (13:30)
[2023-06-13] MEDS ORDERED: PNEUMOCOCCAL VACCINE POLYVALENT 0.5 ML SYRINGE [PPSV23] IM. ONE (13:30)
[2023-06-13] MEDS: BusPIRone HCL 5 MG TABLET PO SCH ×2 (13:35→17:25)
[2023-06-13] MEDS ORDERED: ESZOPICLONE 3 MG TABLET PO PRN (14:00)
[2023-06-13] MEDS ORDERED: GABAPENTIN 300 MG CAPSULE PO PRN (14:00)
[2023-06-13 17:10] LABS: GLUCOMETER DEV NAME(LOC) BV3S.; GLUCOSE,POINT OF CARE 124 MG/DL (70-110)
[2023-06-13] MEDS: SILVER SULFADIAZINE 1% 25 GM CREAM TP SCH (17:25)
[2023-06-13] MEDS: THIAMINE 100 MG TABLET PO SCH (17:25)
[2023-06-13] MEDS: MELATONIN 5 MG TABLET PO SCH (20:49)
[2023-06-13] MEDS: QUEtiapine FUMARATE 200 MG TABLET PO SCH (20:49)
[2023-06-13] MEDS ORDERED: QUEtiapine FUMARATE 200 MG TABLET PO SCH (21:00)
[2023-06-14] VITALS (11 sets, daily range): BP systolic 102–140; BP diastolic 64–115; PULSE 88–101; RESP 16–18; TEMP 97.3–98.3; O2SAT 97–99
[2023-06-14 07:02] LABS: GLUCOMETER DEV NAME(LOC) BV3S.; GLUCOSE,POINT OF CARE 104 MG/DL (70-110)
[2023-06-14] MEDS: FOLIC ACID 1 MG TABLET PO SCH (08:41)
[2023-06-14] MEDS: MULTIVITAMINS WITH MINERALS, THERAPEUTIC TABLET PO SCH (08:41)
[2023-06-14] MEDS: BusPIRone HCL 5 MG TABLET PO SCH ×3 (08:41→16:28)
[2023-06-14] MEDS: DULoxetine HCL 60 MG CAPSULE PO SCH (08:42)
[2023-06-14] MEDS: OMEGA-3/DHA/EPA/FISH OIL 1,000 MG CAPSULE PO SCH ×2 (08:43→10:44)
[2023-06-14] MEDS: THIAMINE 100 MG TABLET PO SCH ×2 (08:44→16:28)
[2023-06-14] MEDS ORDERED: DULoxetine HCL 60 MG CAPSULE PO SCH (09:00)
[2023-06-14] MEDS: SILVER SULFADIAZINE 1% 25 GM CREAM TP SCH ×2 (09:51→17:33)
[2023-06-14] MEDS: HydrOXYzine PAMOATE 50 MG CAPSULE PO PRN (11:58)
[2023-06-14] MEDS ORDERED: MAG HYDROX/ALUMINUM HYD/SIMETH ES 30 ML SUSPENSION UDCUP PO PRN (15:30)
[2023-06-14] MEDS ORDERED: CloNIDine HCL 0.1 MG TABLET PO PRN (15:30)
[2023-06-14] MEDS ORDERED: IBUPROFEN 600 MG TABLET PO PRN (15:30)
[2023-06-14 16:31] LABS: GLUCOMETER DEV NAME(LOC) BV3S.; GLUCOSE,POINT OF CARE 174 MG/DL (70-110)
[2023-06-14] MEDS: CloNIDine HCL 0.1 MG TABLET PO SCH ×2 (16:43→21:24)
[2023-06-14] MEDS: INSULIN LISPRO 100 UNITS/ML SQ PRN (16:44)
[2023-06-14] MEDS: MELATONIN 5 MG TABLET PO SCH (21:24)
[2023-06-14] MEDS: QUEtiapine FUMARATE 200 MG TABLET PO SCH (21:24)
[2023-06-15 06:57] VITALS: BP 101/67; PULSE 90; RESP 18; TEMP 97.8; O2SAT 97
[2023-06-15 07:01] LABS: GLUCOMETER DEV NAME(LOC) BV3S.; GLUCOSE,POINT OF CARE 103 MG/DL (70-110)
[2023-06-15] MEDS: CloNIDine HCL 0.1 MG TABLET PO SCH ×4 (07:02→20:17)
[2023-06-15 09:12] VITALS: BP 100/66; PULSE 82; RESP 16; TEMP 96.9; O2SAT 97
[2023-06-15] MEDS: MULTIVITAMINS WITH MINERALS, THERAPEUTIC TABLET PO SCH (09:16)
[2023-06-15] MEDS: OMEGA-3/DHA/EPA/FISH OIL 1,000 MG CAPSULE PO SCH ×2 (09:16→11:25)
[2023-06-15] MEDS: BusPIRone HCL 5 MG TABLET PO SCH ×3 (09:16→18:01)
[2023-06-15] MEDS: THIAMINE 100 MG TABLET PO SCH ×2 (09:16→18:00)
[2023-06-15] MEDS: FOLIC ACID 1 MG TABLET PO SCH (09:16)
[2023-06-15] MEDS: DULoxetine HCL 60 MG CAPSULE PO SCH (09:20)
[2023-06-15] MEDS: HydrOXYzine PAMOATE 50 MG CAPSULE PO PRN (11:24)
[2023-06-15] MEDS: SILVER SULFADIAZINE 1% 25 GM CREAM TP SCH ×2 (11:26→18:01)
[2023-06-15 11:57] VITALS: BP 100/66; PULSE 82; RESP 18; TEMP 96.9; O2SAT 97
[2023-06-15 15:45] VITALS: BP 108/65; PULSE 78; RESP 18; TEMP 97.2; O2SAT 97
[2023-06-15 16:41] LABS: GLUCOMETER DEV NAME(LOC) BV3S.; GLUCOSE,POINT OF CARE 136 MG/DL (70-110)
[2023-06-15] MEDS: GABAPENTIN 400 MG CAPSULE PO SCH ×2 (18:00→20:17)
[2023-06-15 19:55] VITALS: BP 120/66; PULSE 80; RESP 18; TEMP 97.4; O2SAT 97
[2023-06-15] MEDS: MELATONIN 5 MG TABLET PO SCH (20:17)
[2023-06-15] MEDS: QUEtiapine FUMARATE 200 MG TABLET PO SCH (20:17)
[2023-06-15 21:11] VITALS: BP 125/62; PULSE 78; RESP 17; TEMP 97.4; O2SAT 99
[2023-06-16 06:01] LABS: GLUCOMETER DEV NAME(LOC) BV3S.; GLUCOSE,POINT OF CARE 113 MG/DL (70-110)
[2023-06-16] MEDS: CloNIDine HCL 0.1 MG TABLET PO SCH ×4 (06:03→21:13)
[2023-06-16 06:12] VITALS: BP 109/70; PULSE 90; RESP 18; TEMP 97.5; O2SAT 98
[2023-06-16] MEDS: OMEGA-3/DHA/EPA/FISH OIL 1,000 MG CAPSULE PO SCH ×2 (08:29→10:15)
[2023-06-16] MEDS: THIAMINE 100 MG TABLET PO SCH ×2 (08:29→16:24)
[2023-06-16] MEDS: BusPIRone HCL 5 MG TABLET PO SCH ×3 (08:30→16:25)
[2023-06-16] MEDS: DULoxetine HCL 60 MG CAPSULE PO SCH (08:30)
[2023-06-16] MEDS: MULTIVITAMINS WITH MINERALS, THERAPEUTIC TABLET PO SCH (08:30)
[2023-06-16] MEDS: SILVER SULFADIAZINE 1% 25 GM CREAM TP SCH ×2 (08:30→16:25)
[2023-06-16] MEDS: FOLIC ACID 1 MG TABLET PO SCH (08:30)
[2023-06-16] MEDS: GABAPENTIN 400 MG CAPSULE PO SCH ×4 (08:30→20:08)
[2023-06-16 08:32] VITALS: BP 111/70; PULSE 86; RESP 17; TEMP 97.6; O2SAT 99
[2023-06-16] MEDS: HydrOXYzine PAMOATE 50 MG CAPSULE PO PRN ×2 (09:45→14:27)
[2023-06-16] MEDS: OLANZapine 5 MG RAPDIS TABLET PO PRN (09:45)
[2023-06-16 12:15] VITALS: BP 133/91; PULSE 94; RESP 18; TEMP 97.3; O2SAT 98
[2023-06-16] MEDS: INSULIN LISPRO 100 UNITS/ML SQ PRN (16:34)
[2023-06-16 17:01] LABS: GLUCOMETER DEV NAME(LOC) BV3S.; GLUCOSE,POINT OF CARE 173 MG/DL (70-110)
[2023-06-16] MEDS: QUEtiapine FUMARATE 200 MG TABLET PO SCH (20:08)
[2023-06-16] MEDS: MELATONIN 5 MG TABLET PO SCH (20:08)
[2023-06-16 21:42] VITALS: BP 130/82; PULSE 102; RESP 16; TEMP 97.4; O2SAT 98
[2023-06-17] MEDS: CloNIDine HCL 0.1 MG TABLET PO SCH ×4 (05:42→21:51)
[2023-06-17 05:51] VITALS: BP 132/87; PULSE 89; RESP 18; TEMP 97.4; O2SAT 98
[2023-06-17 06:00] LABS: GLUCOMETER DEV NAME(LOC) BV3S.; GLUCOSE,POINT OF CARE 125 MG/DL (70-110)
[2023-06-17 08:14] VITALS: BP 111/63; PULSE 95; RESP 17; TEMP 97.5; O2SAT 96
[2023-06-17] MEDS: DULoxetine HCL 60 MG CAPSULE PO SCH (08:27)
[2023-06-17] MEDS: THIAMINE 100 MG TABLET PO SCH ×2 (08:27→16:20)
[2023-06-17] MEDS: MULTIVITAMINS WITH MINERALS, THERAPEUTIC TABLET PO SCH (08:27)
[2023-06-17] MEDS: GABAPENTIN 400 MG CAPSULE PO SCH ×4 (08:27→20:15)
[2023-06-17] MEDS: BusPIRone HCL 5 MG TABLET PO SCH ×3 (08:27→16:20)
[2023-06-17] MEDS: OMEGA-3/DHA/EPA/FISH OIL 1,000 MG CAPSULE PO SCH (08:28)
[2023-06-17] MEDS: FOLIC ACID 1 MG TABLET PO SCH (08:28)
[2023-06-17] MEDS: SILVER SULFADIAZINE 1% 25 GM CREAM TP SCH ×2 (08:30→16:20)
[2023-06-17 16:52] LABS: GLUCOMETER DEV NAME(LOC) BV3S.; GLUCOSE,POINT OF CARE 200 MG/DL (70-110)
[2023-06-17] MEDS: INSULIN LISPRO 100 UNITS/ML SQ PRN (17:05)
[2023-06-17] MEDS: QUEtiapine FUMARATE 200 MG TABLET PO SCH (20:15)
[2023-06-17] MEDS: MELATONIN 5 MG TABLET PO SCH (20:15)
[2023-06-17 20:57] VITALS: BP 137/89; PULSE 100; RESP 19; TEMP 97.8; O2SAT 97
[2023-06-18] MEDS: CloNIDine HCL 0.1 MG TABLET PO SCH ×4 (06:12→21:27)
[2023-06-18 08:30] VITALS: BP 121/81; PULSE 95; RESP 17; TEMP 97.6; O2SAT 99
[2023-06-18] MEDS: MULTIVITAMINS WITH MINERALS, THERAPEUTIC TABLET PO SCH (09:19)
[2023-06-18] MEDS: OMEGA-3/DHA/EPA/FISH OIL 1,000 MG CAPSULE PO SCH (09:19)
[2023-06-18] MEDS: BusPIRone HCL 5 MG TABLET PO SCH ×3 (09:19→16:06)
[2023-06-18] MEDS: DULoxetine HCL 60 MG CAPSULE PO SCH (09:19)
[2023-06-18] MEDS: GABAPENTIN 400 MG CAPSULE PO SCH ×4 (09:19→20:27)
[2023-06-18] MEDS: THIAMINE 100 MG TABLET PO SCH ×2 (09:19→16:07)
[2023-06-18] MEDS: FOLIC ACID 1 MG TABLET PO SCH (09:21)
[2023-06-18] MEDS: SILVER SULFADIAZINE 1% 25 GM CREAM TP SCH ×2 (09:58→16:07)
[2023-06-18] MEDS: HydrOXYzine PAMOATE 50 MG CAPSULE PO PRN (11:40)
[2023-06-18] MEDS: INSULIN LISPRO 100 UNITS/ML SQ PRN (16:48)
[2023-06-18 17:06] LABS: GLUCOMETER DEV NAME(LOC) BV3S.; GLUCOSE,POINT OF CARE 173 MG/DL (70-110)
[2023-06-18] MEDS: QUEtiapine FUMARATE 200 MG TABLET PO SCH (20:27)
[2023-06-18] MEDS: MELATONIN 5 MG TABLET PO SCH (20:27)
[2023-06-18 20:42] VITALS: RESP 18; TEMP 98
[2023-06-19 05:50] VITALS: BP 110/70; PULSE 89; RESP 18; TEMP 98; O2SAT 98
[2023-06-19] MEDS: CloNIDine HCL 0.1 MG TABLET PO SCH ×3 (06:02→16:34)
[2023-06-19 06:16] LABS: GLUCOMETER DEV NAME(LOC) BV3S.; GLUCOSE,POINT OF CARE 98 MG/DL (70-110)
[2023-06-19] MEDS: GABAPENTIN 300 MG CAPSULE PO SCH ×3 (08:50→16:35)
[2023-06-19] MEDS: OMEGA-3/DHA/EPA/FISH OIL 1,000 MG CAPSULE PO SCH ×2 (08:51→09:00)
[2023-06-19] MEDS: DULoxetine HCL 60 MG CAPSULE PO SCH (08:51)
[2023-06-19] MEDS: THIAMINE 100 MG TABLET PO SCH ×2 (08:51→16:34)
[2023-06-19] MEDS: BusPIRone HCL 5 MG TABLET PO SCH ×3 (08:51→16:34)
[2023-06-19] MEDS: FOLIC ACID 1 MG TABLET PO SCH (08:51)
[2023-06-19] MEDS: MULTIVITAMINS WITH MINERALS, THERAPEUTIC TABLET PO SCH (08:51)
[2023-06-19 08:56] VITALS: BP 112/71; PULSE 97; RESP 16; TEMP 98; O2SAT 98
[2023-06-19] MEDS: SILVER SULFADIAZINE 1% 25 GM CREAM TP SCH ×2 (09:50→16:59)
[2023-06-19] MEDS: HydrOXYzine PAMOATE 50 MG CAPSULE PO PRN (10:31)
[2023-06-19] MEDS ORDERED: NALT50TA PO (15:39)
== END 2023-06-19 18:15 | disposition left against medical advice (07) | DRG 750 ==
LOC: EMS 12:25 → B3A 06-13 09:38
PROVIDERS: ADMIT Psychiatry & Neurology Psychiatry; ATTEND Psychiatry & Neurology Psychiatry
DX: F25.1 Schizoaffective disorder, depressive type (principal); R45.851 Suicidal ideations; E11.9 Type 2 diabetes mellitus without complications; F15.10 Other stimulant abuse, uncomplicated; D64.9 Anemia, unspecified; F11.20 Opioid dependence, uncomplicated; F17.210 Nicotine dependence, cigarettes, uncomplicated; Z53.21 Procedure and treatment not carried out due to patient leaving prior to being seen by health care provider; Z20.822 Contact with and (suspected) exposure to COVID-19; F41.9 Anxiety disorder, unspecified; K21.9 Gastro-esophageal reflux disease without esophagitis; G43.909 Migraine, unspecified, not intractable, without status migrainosus; F19.10 Other psychoactive substance abuse, uncomplicated; I10 Essential (primary) hypertension; Z59.00 Homelessness unspecified; Z90.49 Acquired absence of other specified parts of digestive tract; Z79.899 Other long term (current) drug therapy
CPT/HCPCS: 80053; 80307; 81003; 82962; 84703; 85025; 87081; 99285; G0480; Q9967